=== PATIENT | female | born 1980 | race Native Hawaiian/Other Pacific Islander ===

== ENCOUNTER → 2020-04-13 14:16 | Outpatient (CLI) | payer OTHER, SELFPAY ==
[2020-04-13 15:38] LABS: Add Manual Diff / Slide Review NO; Basophils Absolute Auto 100 /uL (0-100); Basophils Percent Auto 0.4 % (0-2); Eosinophils Absolute Auto 100 /uL (0-450); Eosinophils Percent Auto 0.8 % (2-4); Hematocrit 39.1 % (36-46); Hemoglobin 13.7 g/dL (12.0-16.0); Lymphocytes Absolute Auto 2600 /uL (1100-4500); Lymphocytes Percent Auto 18.4 % (25-40); Mean Corpuscular Hemoglobin 31.7 PG (26-34); Mean Corpuscular Volume 90.6 fL (80-100); Monocytes Absolute Auto 700 /uL (0-900); Neutrophils Absolute Auto 10500 /uL (1500-7000); Neutrophils Percent Auto 75.4 % (50-75); Platelet Count 337 X10^3/uL (150-400); Red Blood Cell Count 4.31 X10^6/uL (4.0-5.2); Red Cell Distribution Width 12.4 % (11.6-14.8); White Blood Cell Count 13.9 X10^3/uL (4.5-11.0)
[2020-04-13 15:45] LABS: Appearance Urine UA CLEAR; Bilirubin Urine UA NEGATIVE (NEGATIVE); Color Urine UA YELLOW; Glucose Urine UA NEGATIVE (Negative); Ketones Urine UA NEGATIVE (NEGATIVE); Leukocyte Esterase Urine UA NEGATIVE (NEGATIVE); Nitrite Urine UA NEGATIVE (Negative); Occult Blood Urine UA NEGATIVE (Negative); Protein Urine UA NEGATIVE (Negative); Specific Gravity Urine UA 1.015 (1.000-1.035); Urobilinogen Urine UA 0.2 E.U./dL (0.2)
[2020-04-13 15:57] LABS: pH Urine UA 7.5 (4.5-8.0)
[2020-04-13 19:09] LABS: Hepatitis B Surface Antigen NEGATIVE s/c (NEGATIVE); Rubella Antibody IgG 17.4 IU/mL (>15)
[2020-04-13 19:23] LABS: HIV 1 & 2 Ab/Ag 4th Gen Combo NEGATIVE (NEGATIVE); Hep C Virus Ab w/Reflex Quant NEGATIVE s/c (NEGATIVE)
[2020-04-14 05:14] LABS: RPR Screen Non Reactive (Non Reactive)
[2020-04-14 10:51] LABS: Varicella IgG Antibody 295 index (Immune >165)
== END ==
PROVIDERS: PCP Specialist; Referring Provider Family Medicine; Visit Provider Family Medicine
DX: Z34.81 Encounter for supervision of other normal pregnancy, first trimester (principal)
CPT/HCPCS: 36415; 80055; 81003; 86787; 86803; 86850; 86900; 86901; 87077; 87086; 87389

== ENCOUNTER → 2020-05-07 13:47 | Outpatient (CLI) | payer OTHER, SELFPAY ==
[2020-05-07 14:03] LABS: RBC Urine None Seen (0-5/HPF)
[2020-05-07 14:40] LABS: Appearance Urine UA CLEAR; Bilirubin Urine UA NEGATIVE (NEGATIVE); Color Urine UA YELLOW; Glucose Urine UA NEGATIVE (Negative); Ketones Urine UA TRACE (NEGATIVE); Leukocyte Esterase Urine UA TRACE (NEGATIVE); Nitrite Urine UA NEGATIVE (Negative); Occult Blood Urine UA NEGATIVE (Negative); Protein Urine UA NEGATIVE (Negative); Urobilinogen Urine UA 0.2 E.U./dL (0.2); pH Urine UA 6.5 (4.5-8.0)
[2020-05-07 14:46] LABS: Amorphous Sediment Urine 1+; Bacteria Urine Occasional (0-1); Culture Indicated Urine Cult Not Indicated; Squamous Epithelial Cell Urine 10-30 /HPF (0-5/HPF); WBC Urine 0-1/HPF (0-5/HPF)
== END ==
PROVIDERS: Referring Provider Family Medicine; Visit Provider Family Medicine
DX: Z34.90 Encounter for supervision of normal pregnancy, unspecified, unspecified trimester (principal)
CPT/HCPCS: 81001; 87086

== ENCOUNTER → 2020-05-11 16:13 | Outpatient (CLI) | payer OTHER, SELFPAY | PROVIDERS: Referring Provider Family Medicine; Visit Provider Family Medicine | DX: O09.299 Supervision of pregnancy with other poor reproductive or obstetric history, unspecified trimester (principal) | CPT/HCPCS: 36415; 81420 ==

== ENCOUNTER → 2020-06-25 15:36 | Outpatient (CLI) | payer OTHER, SELFPAY ==
--- NOTE | 2020-06-25 15:38 | DI.US.S_ITS ---
PROCEDURE: US OB >= 14 WEEKS FETUS INDICATIONS: anatomy scan OUTSIDE/PRIOR DATING DATA: Last menstrual period (LMP): Unknown. LMP-based estimated date of delivery (TOR): Not applicable . First dating scan (date and location): June 25, 2020 . Estimated date of delivery (TOR) from first dating scan: November 21, 2020 . TECHNIQUE: Real-time scanning was performed of the fetus, with image documentation and biometric measurements. Endovaginal scanning: Not performed COMPARISON: None. FINDINGS: General: A single living intrauterine gestation is present. Presentation: Variable. Placenta: Placental position is posterior , without previa. Amniotic fluid index: 14.3 cm, normal range is 5-24 cm. Largest pocket measured 4.9 cm heart rate: 153 beats per minute. Maternal cervical canal: 3.9 cm long. Normal lower limit is 2.5 cm. biometrics: Biparietal diameter: 4.2 cm, correlating with approximately 18 weeks and 4 days Head circumference: 15.3 cm, correlating with approximately 18 weeks and 2 days Abdominal circumference: 13.4 cm, correlating with approximately 18 weeks and 6 days Femur length: 2.9 cm, correlating with approximately 19 weeks and 0 days Estimated gestational age from initial scan: not applicable. Composite gestational age from present scan: 18 weeks and 5 days Estimated weight and percentile: 263 g which correlates with the 95th percentile based off gestational age Measurement variability for biometric dating: +/- 7 days from 14 weeks to 15 weeks 6 days gestation, +/- 10 days from 16 weeks to 21 weeks 6 days gestation, +/- 2 weeks from 22 weeks to 27 weeks 6 days gestation, +/- 3 weeks for 28 weeks gestation or later. weight reference: 4500 g or EFW >90/95% is considered macrosomia or large for gestational age. EFW <10% is small for gestational age. EFW 5% or less is considered intra-uterine growth restriction. Anatomic survey: Neuro: Ventricles are non-dilated at less than 10 mm. Cisterna magna is normal at 3-11 mm. Cerebellum is normal in size and morphology. Nuchal skin fold: Normal at less than 6 mm between 14-21 weeks gestational age. Face: Nose and lips, facial profile are normal. Spine: No evidence for spina bifida. Heart: 4-chambered heart is present, with normal ventricular outflow tracts. Diaphragm: Diaphragm is intact. Stomach: Left-sided stomach is present. Kidneys: No hydronephrosis. Normal is less than 5 mm in 2nd trimester, less than 7 mm in 3rd trimester. Cord: 3-vessel cord has orthotopic insertion. Bladder: Normal in size. Extremities: All 4 extremities identified. IMPRESSION: 1. Single living intrauterine gestation with an estimated sonographic gestational age of approximately 18 weeks and 5 days. This correlates with an estimated date of delivery of November 21, 2020. 2. Estimated weight of approximately 263 g which [address] the fetus within the 95th percentile based off gestational age. 3. Unremarkable routine second-trimester anatomic screening survey. Dictated by: Rosendo Feliciano M.D. on 06/25/2020 at 21:44 Approved by: Rosendo Feliciano M.D. on 06/25/2020 at 21:49
== END ==
PROVIDERS: PCP Family Medicine; Referring Provider Family Medicine; Visit Provider Family Medicine
DX: Z34.92 Encounter for supervision of normal pregnancy, unspecified, second trimester (principal); Z3A.18 18 weeks gestation of pregnancy
CPT/HCPCS: 76811

== ENCOUNTER → 2020-06-29 07:06 | Outpatient (CLI) | payer OTHER, SELFPAY ==
[2020-06-29 09:18] LABS: GTT (PREG) 1 Hour PP 50gm Dose 124 mg/dL (76-139)
== END ==
PROVIDERS: PCP Family Medicine; Referring Provider Family Medicine; Visit Provider Family Medicine
DX: Z34.90 Encounter for supervision of normal pregnancy, unspecified, unspecified trimester (principal)
CPT/HCPCS: 36415; 82950

== ENCOUNTER → 2020-08-20 15:42 | Outpatient (CLI) | payer OTHER, SELFPAY ==
--- NOTE | 2020-08-20 15:44 | DI.US.S_ITS ---
PROCEDURE: US OB LIMITED INDICATIONS: LGA on anatomy scan, f/u growth OUTSIDE/PRIOR DATING DATA: First dating scan (date and location): 06/25/2020 . Estimated date of delivery (TOR) from first dating scan: 11/21/2020 . TECHNIQUE: Real-time scanning was performed of the fetus, with image documentation and biometric measurements. Endovaginal scanning: No COMPARISON: [facility], OB >= 14 WEEKS FETUS, 06/25/2020, 15:59. FINDINGS: General: A single living intrauterine gestation is present. Presentation: Breech. Placenta: Placental position is posterior , without previa. Amniotic fluid index: 14.9 cm, normal range is 5-24 cm. heart rate: 149 beats per minute. Maternal cervical canal: 5.4 cm long. Normal lower limit is 2.5 cm. biometrics: Biparietal diameter: 25 weeks 6 days Head circumference: 26 weeks 2 days Abdominal circumference: 28 weeks 5 Femur length: 26 weeks 4 days Estimated gestational age from initial scan: 26 weeks 5 days Composite gestational age from present scan: 26 weeks 6 days Estimated weight and percentile: 1094 g; 73rd percentile Measurement variability for biometric dating: +/- 7 days from 14 weeks to 15 weeks 6 days gestation, +/- 10 days from 16 weeks to 21 weeks 6 days gestation, +/- 2 weeks from 22 weeks to 27 weeks 6 days gestation, +/- 3 weeks for 28 weeks gestation or later. weight reference: 4500 g or EFW >90/95% is considered macrosomia or large for gestational age. EFW <10% is small for gestational age. EFW 5% or less is considered intra-uterine growth restriction. Other: Not applicable. IMPRESSION: 1. Single living fetus redemonstrated and interval growth is normal. Dictated by: Raymond Menjivar [facility] Interpreted: Syd Ayala MD on 08/20/2020 at 17:07 Approved by: Syd Ayala M.D. on 08/20/2020 at 17:11
== END ==
PROVIDERS: PCP Family Medicine; Referring Provider Family Medicine; Visit Provider Family Medicine
DX: Z36.88 Encounter for antenatal screening for fetal macrosomia (principal); Z3A.26 26 weeks gestation of pregnancy
CPT/HCPCS: 76815

== ENCOUNTER → 2020-09-17 12:08 | Outpatient (CLI) | payer OTHER, SELFPAY ==
[2020-09-17 14:54] LABS: Add Manual Diff / Slide Review NO; Basophils Absolute Auto 0 /uL (0-100); Basophils Percent Auto 0.3 % (0-2); Eosinophils Absolute Auto 0 /uL (0-450); Eosinophils Percent Auto 0.3 % (2-4); Hematocrit 36.9 % (36-46); Hemoglobin 12.5 g/dL (12.0-16.0); Lymphocytes Absolute Auto 1800 /uL (1100-4500); Lymphocytes Percent Auto 15.7 % (25-40); Mean Corpuscular HGB Conc 33.8 % (30-36); Mean Corpuscular Hemoglobin 30.7 PG (26-34); Mean Corpuscular Volume 90.8 fL (80-100); Monocytes Absolute Auto 600 /uL (0-900); Monocytes Percent Auto 5.3 % (3-14); Neutrophils Absolute Auto 9100 /uL (1500-7000); Neutrophils Percent Auto 78.4 % (50-75); Platelet Count 332 X10^3/uL (150-400); Red Blood Cell Count 4.06 X10^6/uL (4.0-5.2); Red Cell Distribution Width 13.3 % (11.6-14.8); White Blood Cell Count 11.6 X10^3/uL (4.5-11.0)
[2020-09-17 15:38] LABS: GTT (PREG) 1 Hour PP 50gm Dose 142 mg/dL (76-139)
== END ==
PROVIDERS: PCP Family Medicine; Referring Provider Family Medicine; Visit Provider Family Medicine
DX: Z34.90 Encounter for supervision of normal pregnancy, unspecified, unspecified trimester (principal)
CPT/HCPCS: 36415; 82950; 85025

== ENCOUNTER → 2020-09-23 08:03 | Outpatient (CLI) | payer OTHER, SELFPAY ==
[2020-09-23 09:36] LABS: Glucose Fasting Gestational 96 mg/dL (76-95)
[2020-09-23 10:49] LABS: Glucose 1 Hour Gest 156 mg/dL (76-180)
[2020-09-23 11:13] LABS: Glucose 2 Hour Gest 155 mg/dL (76-155)
[2020-09-23 11:22] LABS: Glucose Tol Interp,Gestational INTERPRETATION
[2020-09-23 12:18] LABS: Glucose 3 Hour Gest 139 mg/dL (76-140)
== END ==
PROVIDERS: PCP Family Medicine; Referring Provider Family Medicine; Visit Provider Family Medicine
DX: Z34.90 Encounter for supervision of normal pregnancy, unspecified, unspecified trimester (principal); R73.09 Other abnormal glucose
CPT/HCPCS: 36415; 82951; 82952

== ENCOUNTER → 2020-10-07 15:44 | Outpatient (CLI) | payer OTHER, SELFPAY ==
--- NOTE | 2020-10-07 15:47 | DI.US.S_ITS ---
PROCEDURE: US OB LIMITED INDICATIONS: GROWTH OUTSIDE/PRIOR DATING DATA: Last menstrual period (LMP): Not available. LMP-based estimated date of delivery (TOR): Not available . First dating scan (date and location): 06/25/20 . Estimated date of delivery (TOR) from first dating scan: 11/21/20 . TECHNIQUE: Real-time scanning was performed of the fetus, with image documentation and biometric measurements. Endovaginal scanning: Not needed COMPARISON: [facility], OB LIMITED, 08/20/2020, 16:12. FINDINGS: General: A single living intrauterine gestation is present. Presentation: Vertex. Placenta: Placental position is posterior fundal , without previa. Amniotic fluid index: 8.5 cm, normal range is 5-24 cm. heart rate: 143 beats per minute. Maternal cervical canal: 3.1 cm long. Normal lower limit is 2.5 cm. biometrics: Biparietal diameter: 8.4 cm, 33 weeks 4 days Head circumference: 30.3 cm, 33 weeks 4 days Abdominal circumference: 30.5 cm, 34 weeks 3 days Femur length: 6.4 cm, 33 weeks 0 days Estimated gestational age from initial scan: not applicable. Composite gestational age from present scan: 33 weeks 5 days Estimated weight and percentile: 2302g, 52% Measurement variability for biometric dating: +/- 7 days from 14 weeks to 15 weeks 6 days gestation, +/- 10 days from 16 weeks to 21 weeks 6 days gestation, +/- 2 weeks from 22 weeks to 27 weeks 6 days gestation, +/- 3 weeks for 28 weeks gestation or later. weight reference: 4500 g or EFW >90/95% is considered macrosomia or large for gestational age. EFW <10% is small for gestational age. EFW 5% or less is considered intra-uterine growth restriction. Other: Not applicable. IMPRESSION: Appropriate growth. Dictated by: Jadiel Victoria M.D. on 10/07/2020 at 17:38 Approved by: Jadiel Victoria M.D. on 10/08/2020 at 14:34
== END ==
PROVIDERS: PCP Family Medicine; Referring Provider Family Medicine; Visit Provider Family Medicine
DX: Z36.89 Encounter for other specified antenatal screening (principal); Z3A.33 33 weeks gestation of pregnancy
CPT/HCPCS: 76815

== ENCOUNTER → 2020-10-18 13:58 | Outpatient (CLI) | payer OTHER, SELFPAY ==
--- NOTE | 2020-10-18 14:41 | DIET.PN ---
INITIAL GESTATIONAL DIABETES ASSESSMENT ASSESS:? Ms. Geller is a 40 yof referred for newly diagnosed Gestational diabetes. Pt is G4, P2. She has hx of pre-eclampsia and was started on 81mg baby aspirin. She has been monitoring her fasting and 2 hr post prandial glucose. She has had several fastings >95 with a few post meals >135. She admits to eating a lot of rice, burgers, and wakes up in the middle of the night and drinks juice. ? TOR:?11/23/2020 ? WKS GESTATION:?? 35wks ?LABS: FB 1hr: 156 2hr: 155 3hr: 139 ? MEDS: na ? DIET:? B: sausage muffin, 16oz almond milk coffee or German yogurt L: chicken wrap; burger w/ fries; taco salad D: meat, veg, rice, sometimes ice cream Evening sn: juice ? HT:? 64in ? PRE-PREG WT:? 147lb ? PRE-PREG BMI:??? 25.2 ? CURRENT WT: 184lb ? TOTAL WT GAIN:? 37lb EXERCISE: 1-2 miles walking per day NUTRITION DX 1. Altered nutrition related lab values r/t gestational diabetes as evidenced by recent labs (OGGT). INTERVENTION 1. Discussed pathophysiology of gestational diabetes and impact of hormone and nutrition/diet on blood sugar control.? Discussed fed versus non-fed state.? 2. Recommended checking fasting, pre-meal and 1hr post prandial (3x/day).? Discussed goals for glycemic control (<95 FBG, <140 1-hr PP, <120 2-hr PP).? 3. Discussed the effect of carbohydrates/protein/fat on blood sugar control.? Stressed importance of consistent carbohydrate intake at each meal and provided instructions for recommended servings/portions of carbohydrates/protein per meal.? Provided pt with educational material. 4. Introduced carbohydrate counting and measuring carbohydrate content via servings sizes and reading nutrition labels.? Provided handouts.? Pt will need further review 5. Discussed importance of meal timing and not going >3 hours between meals.? Provided sample meal schedule for pt.? Pt agreeable.?? 6. Discussed importance a pre- vitamin and including food sources of calcium, vitamin D, iron and folic acid for baby and mother?s nutrition support. 7. Discussed caffeine intake. Recommend no more than 200 mg/day (1 cup coffee). 8. Discussed rule of 15 for hypoglycemia. 9. Recommend patient purchase Urine Ketone strips and instructed on use and when to contact provider. 10. Recommended patient continue exercise as appropriate per PCP approval. 11. Patient may need medication management, will follow-up with plan of care at next visit after reviewing glucose results.? MONITOR/EVAL: Follow up scheduled X 1 week. Good compliance expected. Review: carb sources, carb counting, portion size, meal timing, BG log, weight.
== END ==
PROVIDERS: PCP Family Medicine; Referring Provider Family Medicine; Visit Provider Family Medicine
DX: O24.419 Gestational diabetes mellitus in pregnancy, unspecified control (principal); Z3A.35 35 weeks gestation of pregnancy; Z71.3 Dietary counseling and surveillance
CPT/HCPCS: G0108

== ENCOUNTER → 2020-10-19 15:17 | Outpatient (CLI) | payer OTHER, SELFPAY ==
[2020-10-20 13:33] LABS: Strep Grp B PCR NEG for Grp B Strep
== END ==
PROVIDERS: PCP Family Medicine; Visit Provider Family Medicine
DX: Z34.90 Encounter for supervision of normal pregnancy, unspecified, unspecified trimester (principal); Z3A.25 25 weeks gestation of pregnancy
CPT/HCPCS: 87653

== ENCOUNTER 2020-10-27 15:35 | Outpatient (CLI) | payer OTHER, SELFPAY ==
[2020-10-27 16:09] LABS: RBC Urine None Seen (0-5/HPF)
--- NOTE | 2020-10-27 16:14 | PM.OBTRLD ---
Visit Information Visit Information Date of evaluation: 10/27/20 Primary OB Provider: Leilani Shine Reason for Evaluation: Yes other Comments/Additional reasons for admission: 40yo at 36w1d here for evaluation due to elevated BP in clinic. No headaches, vision changes, RUQ pain, increased edema. She is overall feeling well. No contractions, LOF, vaginal bleeding. Feeling baby move regularly. [facility] Medical History (Updated 10/27/20 @ 17:12 by Leilani Shine MD) AMA (advanced maternal age) multigravida 35+ Anxiety (~2016) Depression (~2016) Left wrist fracture Migraine Preeclampsia (~01/09/05) Seasonal allergies (spontaneous vaginal delivery) (~10/29/98) Surgical History (Updated 04/08/20 @ 15:11 by Johanny Nevarez, RN) H/O dilation and curettage (~2001) Family History (Updated 04/08/20 @ 15:27 by Johanny Nevarez, DENICE) Mother Hypertension Father Hypertension Cataracts, bilateral Grandfather Old age Grandmother Old age Grandfather No problems noted. Grandmother Old age Brother No known health problems Social History marital status: unmarried,living together details: Son is in College : [place] number of children: 2 household members: spouse and children lives independently: Yes pets and animals: Yes education level: high school occupational status: employed current occupational exposures/hazards: Yes Previous occupational history: works at the [email or web address] special [employer] needs: No Smoking Status: Current some day smoker (vaping) Tobacco: How many years used: 20 Smokeless tobacco user: dissolvable tobacco (Vaping - aware and using less) second hand exposure: No alcohol intake: former (pre- : wine at night (stopped with diagnosis)) substance use type: does not use Objective Labs Result Diagrams: 10/27/20 16:05 10/27/20 16:05 Evaluation Evaluation Baseline heart rate: 120 Variability: Moderate (11-25) monitor accelerations: Present monitor decelerations: Absent Category of Tracing: Reactive Diagnosis, Plan/Disposition Final Diagnosis (1) Pre-eclampsia: Status: Acute (2) 36 weeks gestation of : Status: Acute Plan/Disposition Plan: Pt with persistently elevated blood pressure here, more than 2 hours after check in the office, but not to severe range. Asymptomatic. Negative HELLP labs, however Pr/Cr elevated therefore meeting criteria for pre-eclampsia without severe features. Normal BPP today. Pt will return for NST on 11/01. Appt on that day as well. Recommend checking BPs at home BID until then. If > 160/110, to come to L&D for evaluation. If persistently > 150/100, will let us know. Discussed signs/symptoms in detail including swelling, RUQ pain, vision changes, headache. Pt will be evaluated if these occur. Plan for IOL at 37wks for pre-eclampsia. OB Disposition: home
[2020-10-27 16:15] LABS: Add Manual Diff / Slide Review NO; Basophils Absolute Auto 100 /uL (0-100); Basophils Percent Auto 0.6 % (0-2); Eosinophils Absolute Auto 0 /uL (0-450); Eosinophils Percent Auto 0.3 % (2-4); Hematocrit 36.1 % (36-46); Hemoglobin 12.7 g/dL (12.0-16.0); Lymphocytes Absolute Auto 1800 /uL (1100-4500); Lymphocytes Percent Auto 17.6 % (25-40); Mean Corpuscular HGB Conc 35.3 % (30-36); Mean Corpuscular Hemoglobin 31.7 PG (26-34); Mean Corpuscular Volume 89.7 fL (80-100); Monocytes Absolute Auto 600 /uL (0-900); Monocytes Percent Auto 5.6 % (3-14); Neutrophils Absolute Auto 7800 /uL (1500-7000); Neutrophils Percent Auto 75.9 % (50-75); Platelet Count 259 X10^3/uL (150-400); Red Blood Cell Count 4.02 X10^6/uL (4.0-5.2); Red Cell Distribution Width 13.9 % (11.6-14.8); White Blood Cell Count 10.3 X10^3/uL (4.5-11.0)
--- NOTE | 2020-10-27 16:17 | DI.US.S_ITS ---
PROCEDURE: US OB BIOPHYSICAL PROFILE INDICATIONS: gestational HTN OUTSIDE/PRIOR DATING DATA: Last menstrual period (LMP): Not known. LMP-based estimated date of delivery (TOR): Not applicable. First dating scan (date and location): June 25, 2020. Estimated date of delivery (TOR) from first dating scan: November 21, 2020. TECHNIQUE: Real-time scanning was performed of the fetus for biophysical profile, with image documentation. Color and pulse Doppler interrogation was also performed of the umbilical artery near its insertion into the placenta. Endovaginal scanning: Performed COMPARISON: [facility], OB LIMITED, 10/07/2020, 15:57. [facility], OB LIMITED, 08/20/2020, 16:12. [facility], OB >= 14 WEEKS FETUS, 06/25/2020, 15:59. FINDINGS: General: A single living intrauterine gestation is present. Presentation: Cephalic Placenta: Placental position is posterior, without previa. Amniotic fluid index: 9.6 cm, normal range is 5-24 cm. heart rate: 144 beats per minute. Maternal cervical canal: Not evaluated. Biophysical profile: Tone: 2 points. Movement: 2 points. Respiration: 2 points. Largest pocket of fluid: To points. Umbilical artery Doppler: Not evaluated. IMPRESSION: 1. Single living intrauterine gestation. 2. Biophysical profile score 8/8. Dictated by: Beverley Hilario MD, PhD on 10/27/2020 at 17:50 Approved by: Beverley Hilario MD, PhD on 10/27/2020 at 17:54
[2020-10-27 16:27] LABS: Alanine Aminotransferase 14 IU/L (<35); Albumin 3.4 g/dL (3.5-5.0); Albumin Globulin Ratio 1.1 (1.0-2.8); Alkaline Phosphatase 86 U/L (38-126); Aspartate Aminotransferase 23 IU/L (14-36); BUN Creatinine Ratio 11.5 (6-22); Bilirubin Total 0.1 mg/dL (0.2-1.3); Blood Urea Nitrogen 6 mg/dL (7-17); Calcium 9.2 mg/dL (8.4-10.2); Carbon Dioxide 20 mmol/L (22-32); Chloride 107 mmol/L (98-107); Estimated Glomerular Filt Rate > 60.0 mL/min (>60); Glucose 117 mg/dL (70-100); HEMOLYSIS < 15 (0-50); Potassium 3.7 mmol/L (3.4-5.1); Sodium 135 mmol/L (137-145); Total Protein 6.4 g/dL (6.3-8.2)
[2020-10-27 16:44] LABS: Appearance Urine UA CLEAR; Bilirubin Urine UA NEGATIVE (NEGATIVE); Color Urine UA YELLOW; Glucose Urine UA NEGATIVE (Negative); Ketones Urine UA NEGATIVE (NEGATIVE); Leukocyte Esterase Urine UA TRACE (NEGATIVE); Nitrite Urine UA NEGATIVE (Negative); Occult Blood Urine UA TRACE-LYSED (Negative); Protein Urine UA NEGATIVE (Negative); Urobilinogen Urine UA 0.2 E.U./dL (0.2)
[2020-10-27 16:55] LABS: Bacteria Urine Occasional (0-1); Culture Indicated Urine Specimen Cultured; Squamous Epithelial Cell Urine 1-5 /HPF (0-5/HPF); WBC Urine 1-5/HPF (0-5/HPF)
[2020-10-27 17:00] LABS: Creatinine Urine Random 29.1 mg/dL; Protein (Total) Urine Random 14 mg/dL (0-12); Protein Creatinine Ratio Urine 0.48 GRAM/24H
== END 2020-10-27 17:18 | disposition home or self-care (01) ==
LOC: LABOR 16:15 → OB 10-28 06:49
PROVIDERS: PCP Family Medicine; Referring Provider Family Medicine; Visit Provider Family Medicine
DX: O14.03 Mild to moderate pre-eclampsia, third trimester (principal); O24.410 Gestational diabetes mellitus in pregnancy, diet controlled; O09.523 Supervision of elderly multigravida, third trimester; Z3A.36 36 weeks gestation of pregnancy
CPT/HCPCS: 36415; 59025; 76819; 80053; 81001; 82570; 84156; 85025; 87077; 87086; G0378; G0379

== ENCOUNTER 2020-11-01 14:53 | Outpatient (CLI) | payer OTHER, SELFPAY ==
--- NOTE | 2020-11-01 15:31 | PM.OBTRLD ---
Visit Information Visit Information Date of evaluation: 11/01/20 Primary OB Provider: Leilani Shine Reason for Evaluation: Yes non-stress test non-stress test reason: hypertension/pre-eclampsia Comments/Additional reasons for admission: 40yo at 36w6d here for NST for pre-eclampsia without severe features. [facility] Medical History (Updated 11/01/20 @ 14:48 by Leilani Sihne MD) AMA (advanced maternal age) multigravida 35+ Anxiety (~2016) Depression (~2016) Left wrist fracture Migraine Preeclampsia (~01/09/05) Seasonal allergies (spontaneous vaginal delivery) (~10/29/98) Surgical History (Updated 04/08/20 @ 15:11 by Johanny Nevarez, RN) H/O dilation and curettage (~2001) Family History (Updated 04/08/20 @ 15:27 by Johanny Nevarez, DENICE) Mother Hypertension Father Hypertension Cataracts, bilateral Grandfather Old age Grandmother Old age Grandfather No problems noted. Grandmother Old age Brother No known health problems Social History marital status: unmarried,living together details: Son is in College : [place] number of children: 2 household members: spouse and children lives independently: Yes pets and animals: Yes education level: high school occupational status: employed current occupational exposures/hazards: Yes Previous occupational history: works at the [employer] needs: No Smoking Status: Current some day smoker (vaping) Tobacco: How many years used: 20 Smokeless tobacco user: dissolvable tobacco (Vaping - aware and using less) second hand exposure: No alcohol intake: former (pre- : wine at night (stopped with diagnosis)) substance use type: does not use Evaluation Evaluation Baseline heart rate: 120 Variability: Moderate (11-25) monitor accelerations: Present monitor decelerations: Absent Category of Tracing: Reactive Diagnosis, Plan/Disposition Final Diagnosis (1) Pre-eclampsia: Status: Acute (2) 36 weeks gestation of : Status: Acute Plan/Disposition Plan: 40yo at 36w6d here for NST for pre-eclampsia without severe features. NST reactive. Single BP elevated to severe range, no repeat back to normal after off the phone with her family. Plan for IOL tomorrow night. OB Disposition: home
== END 2020-11-01 15:36 | disposition home or self-care (01) ==
LOC: LABOR 14:56 → OB 11-02 08:42
PROVIDERS: PCP Family Medicine; Referring Provider Family Medicine; Visit Provider Family Medicine
DX: O14.93 Unspecified pre-eclampsia, third trimester (principal); Z3A.36 36 weeks gestation of pregnancy
CPT/HCPCS: 59025; G0378; G0379

== ENCOUNTER 2020-11-02 19:48 | Inpatient (IN) | payer OTHER, SELFPAY ==
[2020-11-02 20:44] LABS: Add Manual Diff / Slide Review NO; Basophils Absolute Auto 0 /uL (0-100); Basophils Percent Auto 0.4 % (0-2); Eosinophils Absolute Auto 0 /uL (0-450); Eosinophils Percent Auto 0.2 % (2-4); Hematocrit 36.7 % (36-46); Hemoglobin 12.9 g/dL (12.0-16.0); Lymphocytes Absolute Auto 2100 /uL (1100-4500); Lymphocytes Percent Auto 20.2 % (25-40); Mean Corpuscular HGB Conc 35.2 % (30-36); Mean Corpuscular Hemoglobin 31.9 PG (26-34); Mean Corpuscular Volume 90.5 fL (80-100); Monocytes Absolute Auto 500 /uL (0-900); Neutrophils Absolute Auto 7800 /uL (1500-7000); Neutrophils Percent Auto 74.2 % (50-75); Platelet Count 258 X10^3/uL (150-400); Red Blood Cell Count 4.05 X10^6/uL (4.0-5.2); Red Cell Distribution Width 14.1 % (11.6-14.8); White Blood Cell Count 10.5 X10^3/uL (4.5-11.0)
[2020-11-02] MEDS: miSOPROStoL 25 MCG TABLET VAG (20:46)
[2020-11-02 23:31] VITALS: BP 144/92
[2020-11-03] MEDS: ZOLPIDEM 5 MG TABLET PO (00:30)
[2020-11-03] MEDS: miSOPROStoL 25 MCG TABLET VAG ×2 (00:54→04:50)
--- NOTE | 2020-11-03 08:24 | PM.OBHP.1 ---
OB HPI Date/Time Date of admission: 11/02/20 Date Patient Seen: 11/03/20 Time Patient Seen: 08:00 History of Present Condition Chief complaint: observation of labor : 4 Para: 2 Estimated Date of Delivery: 11/23/20 Estimated Gestational Age (weeks): 37w1d Narrative: Gurdeep Geller is a 40 year old at 37w1d here for IOL for pre-eclampsia. Pt denies any headache, vision changes, RUQ pain, worsening LE edema. She has been checking her BPs at home, consistently < 160/110. The pt denies any vaginal bleeding, LOF, contractions before presentation. She is feeling her baby move regularly. The pts has been complicated by GDMA1. Initially with some difficulty controlling fasting sugars, but this has improved significantly. The pt has a hx of pre-eclampsia with her last , and has been on Aspirin since 12 weeks gestation. Pre-eclampsia was diagnosed at 36w1d due to elevated BPs and protein/creatinine ratio, without any severe features. The pts fundus has measured larger than dates for most of her . Baby was 95th percentile at anatomy scan, however subsequent ultrasounds have showed growth at the 73rd and 52nd percentiles. Indications Indication for induction OB: other (pre-eclampsia) History of Present care: good care, initiated at week # (8) and pounds weight gain (40) Dating criteria: LMP confirmed by 1st trimester US Ultrasounds: normal 1st trimester US and normal mid trimester US Obstetrical complications: gestational diabetes (A1) and preeclampsia (diagnosed at 36w1d) Medical complications: none Preadmission Labs Blood type: A (+) positive -: Antibody screen: negative, GBS status: negative, HBsAG: negative, HIV: negative and RPR/VDLR: negative -: Rubella: immune and Varicella: immune HCT: 36.1 HCAB: negative Cell-free DNA: Negative Urine: Negative 1 hr GTT: 142 Prior (ies) History: 10/1998 - at 42wks after post-dates IOL, 7lb9oz male 08/2001 - spontaneous requiring D&C 03/2005 - at 40wks, 9px10nl female, post- pre-eclampsia requiring MgSO4 and antihypertensives continued for around 2 weeks Evaluation Evaluation Baseline heart rate: 120 Variability: Moderate (11-25) monitor accelerations: Present monitor decelerations: Absent Contraction Frequency (minutes): 3 Uterine Contraction Intensity: Strong/Firm Status: Category l Cervical dilation (cm): 2 Cervical effacement (%): 50 station: -2 Laboratory results: Laboratory Tests 11/02/20 11/02/20 11/02/20 20:10 20:10 20:10 WBC 10.5 RBC 4.05 Hgb 12.9 Hct 36.7 MCV 90.5 MCH 31.9 MCHC 35.2 RDW 14.1 Plt Count 258 Neut % (Auto) 74.2 Lymph % (Auto) 20.2 L [place] % (Auto) 5.0 Eos % (Auto) 0.2 L Baso % (Auto) 0.4 Neut # (Auto) 7800 H Lymph # (Auto) 2100 [place] # (Auto) 500 Eos # (Auto) 0 Baso # (Auto) 0 SARS-CoV-2 (PCR) Positive H Blood Type A Positive Antibody Screen Negative [facility] Medical History (Updated 11/01/20 @ 14:48 by Leilani Shine MD) AMA (advanced maternal age) multigravida 35+ Anxiety (~2016) Depression (~2016) Left wrist fracture Migraine Preeclampsia (~01/09/05) Seasonal allergies (spontaneous vaginal delivery) (~10/29/98) Surgical History (Updated 04/08/20 @ 15:11 by Johanny Nevarez RN) H/O dilation and curettage (~2001) Family History (Updated 04/08/20 @ 15:27 by Johanny Nevarez RN) Mother Hypertension Father Hypertension Cataracts, bilateral Grandfather Old age Grandmother Old age Grandfather No problems noted. Grandmother Old age Brother No known health problems Social History marital status: unmarried,living together details: Son is in College : [place] number of children: 2 household members: spouse and children lives independently: Yes pets and animals: Yes education level: high school occupational status: employed current occupational exposures/hazards: Yes Previous occupational history: works at [employer] needs: No Smoking Status: Current some day smoker Tobacco: How many years used: 20 Smokeless tobacco user: dissolvable tobacco (Vaping - aware and using less) second hand exposure: No alcohol intake: former (pre- : wine at night (stopped with diagnosis)) substance use type: does not use Meds Home Medications and Allergies Home Medications Medication Instructions Recorded Confirmed Type loratadine 10 mg tablet 10 mg PO DAILY 04/08/20 04/08/20 History prenat.vits,la,wsz-qufj-hnias 1 tab PO DAILY 04/08/20 04/08/20 History aspirin 81 mg tablet,delayed 81 mg PO DAILY #90 tab 05/11/20 05/11/20 Rx release blood sugar diagnostic #100 ea 09/24/20 Rx blood-glucose meter #1 ea 09/24/20 Rx lancets 33 gauge #100 ea 09/24/20 Rx Allergies Allergy/AdvReac Type Severity Reaction Status Date / Time No Known Allergies Allergy Uncoded 04/08/20 14:54 Exam Const General: cooperative, healthy appearing and comfortable Orientation: alert, awake and oriented x3 Resp Effort & Inspection: normal respiratory effort Auscultation: clear to auscultation bilaterally Cardio Rate: regular rate Rhythm: regular rhythm Heart Sounds: S1 normal, S2 normal and no murmurs GI Inspection: non-distended Palpation: soft and No tender Other: gravid Presentation: vertex Estimated Weight (lbs): 8 Extrem General: no clubbing, cyanosis or edema Objective Labs Result Diagrams: 11/02/20 20:10 Labs: Laboratory Results - last 24 hr 11/02/20 11/02/20 11/02/20 20:10 20:10 20:10 WBC 10.5 RBC 4.05 Hgb 12.9 Hct 36.7 MCV 90.5 MCH 31.9 MCHC 35.2 RDW 14.1 Plt Count 258 Neut % (Auto) 74.2 Lymph % (Auto) 20.2 L [place] % (Auto) 5.0 Eos % (Auto) 0.2 L Baso % (Auto) 0.4 Neut # (Auto) 7800 H Lymph # (Auto) 2100 [place] # (Auto) 500 Eos # (Auto) 0 Baso # (Auto) 0 SARS-CoV-2 (PCR) Positive H Blood Type A Positive Antibody Screen Negative Assessment and Plan Assessment and Plan Assessment and Plan narrative: 40yo at 37w1d here for IOL for pre-eclampsia without severe features. BPs thus far have remained < 160/110, and pt is asymptomatic. No need for MgSO4 at this time. Pt is AMA with negative cfDNA. Pt also with GDMA1 with good control. Received 3 doses of cytotec overnight, now appears to be transitioning into active labor. Rh positive, GBS negative. Pt did test positive for COVID at admission. - Expectant management, anticipate - Monitor BPs closely - No need for MgSO4 at this time - GBS negative, no prophylaxis - FHT reassuring - Epidural for pain control when desired - Pt with regular painful contractions. Initiate pitocin if contractions spacing or without cervical change in a couple hours.
[2020-11-03 11:25] LABS: COVID19 - ADMIT (NP swab/PCR) Negative (Negative)
[2020-11-03] MEDS: LACTATED RINGERS 1,000 ML 100 ML IV ×3 (13:09→22:31)
[2020-11-03] MEDS: OXYTOCIN PREMIX 30 UNIT/500 ML PLAST..BAG IV (13:10)
--- NOTE | 2020-11-03 17:03 | PM.OBPNLAB ---
Date/Time Date Patient Seen: 11/03/20 Time Patient Seen: 17:03 Pain Control Pain control: tolerating well Pelvic Exam Dilation (cm): 4 Effacement (%): 70 station: -2 Amniotic membrane status: Ruptured Comments: After informed consent, AROM performed with production of clear fluid. Contractions Monitor mode: External Pitocin rate (mU/min): 5 Contraction frequency (min): 3 Contraction pattern: Regular Contraction intensity: Strong/Firm Status status: Category l Heart Rate Baseline: 120 Monitor Accelerations: Present Monitor Decelerations: Absent Monitor Variability: Moderate Assessment and Plan Comments: 40yo at 37w1d here for IOL for pre-eclampsia without severe features. BPs thus far have remained < 160/110, and pt is asymptomatic. No need for MgSO4 at this time. Pt is AMA with negative cfDNA. Pt also with GDMA1 with good control. Received 3 doses of cytotec overnight, now on pitocin. AROM performed with production of clear fluid. Rh positive, GBS negative. Pt did test positive for COVID at admission, repeat testing negative. - Expectant management, anticipate - Monitor BPs closely - No need for MgSO4 at this time - GBS negative, no prophylaxis - FHT reassuring - Epidural for pain control when desired - Continue pitocin, titrate as tolerated
[2020-11-03 17:34] LABS: Alanine Aminotransferase 13 IU/L (<35); Albumin 3.5 g/dL (3.5-5.0); Albumin Globulin Ratio 1.1 (1.0-2.8); Alkaline Phosphatase 101 U/L (38-126); Aspartate Aminotransferase 25 IU/L (14-36); BUN Creatinine Ratio 10.2 (6-22); Bilirubin Total 0.3 mg/dL (0.2-1.3); Blood Urea Nitrogen 6 mg/dL (7-17); Calcium 9.4 mg/dL (8.4-10.2); Carbon Dioxide 19 mmol/L (22-32); Chloride 107 mmol/L (98-107); Estimated Glomerular Filt Rate > 60.0 mL/min (>60); Globulin 3.1 g/dL (1.7-4.1); Glucose 80 mg/dL (70-100); HEMOLYSIS < 15 (0-50); Potassium 3.8 mmol/L (3.4-5.1); Sodium 133 mmol/L (137-145); Total Protein 6.6 g/dL (6.3-8.2)
[2020-11-03 18:09] LABS: COVID19 - ADMIT (NP swab/PCR) Negative (Negative)
[2020-11-03] MEDS: miSOPROStoL 200 MCG TABLET 1000 MCG PR (22:58)
[2020-11-03] MEDS: CARBOPROST 250 MCG/ML AMPUL IM (23:00)
[2020-11-03] MEDS: OXYTOCIN 10 UNIT/ML VIAL IM (23:07)
[2020-11-03] MEDS: TRANEXAMIC ACID 1,000 MG in SODIUM CHLORIDE 0.9% 100 ML 400 ML IV (23:19)
[2020-11-03] MEDS: OXYTOCIN PREMIX 30 UNIT/500 ML PLAST..BAG 200 UNIT IV (23:31)
--- NOTE | 2020-11-03 23:38 | P.PCNOB_ITS ---
Labor & Delivery Delivery date: 11/03/20 Estimated blood loss (mL): 1,050 Narrative: PROCEDURE: at 37w1d presented for IOL for pre-eclampsia and was admitted to Labor and Delivery. She received cytotec and then pitocin for induction. She received an epidural for pain control. AROM was performed with production of clear fluid. The patient progressed through the 1st stage over 5 hours. The patient progressed through the 2nd stage over 1 hour. While in the second stage, the pt had recurrent early, variable, and late decels that initially responded to IV fluid bolus and position changes. There was good variability throughout, however the baseline gradually fell to the 100s, with frequent decelerations to the 70s. Due to nonreassuring heart tones, the decision was made to proceed with vacuum-assisted vaginal delivery. Patient was evaluated and noted to have adequate pain control. Patient counseled on risks/benefits/alternatives of vacuum assisted delivery. Risks were discussed and they included but were not limited to a need for an episiotomy, pressure m arks on the baby, lacerations to the baby's scalp/face, serious damage including skull fracture, the need to proceed with an abdominal procedure, , paralysis of the baby's arms and/or legs, neurological impairment of the baby. Alternatives would include CS or further observation depending on status. Questions were answered and the patient verbalized an understanding and decided to proceed. Cervix completely dilated and maternal bladder emptied. Maternal pelvis was noted to be adequate. Vacuum cup of the [employer] applied to the flexion point without difficulty and during contractions, pressure applied between 400-600 mmHg as indicated in the green zone of the pressure gauge. Infant delivered after 2 pulls over one contraction with 0 pop-offs over an intact perineum. Total duration of application of the vacuum was less than 3 minutes. The anterior shoulder and remainder of the was delivered without difficulty. The infant cried spontaneously immediately after delivery. The cord was clamped and cut after it stopped pulsating. was examined and no evidence of injury noted. The infant delivered at 22:45 with APGARs 9/9. The perineum and vagina were inspected with no lacerations. After the third stage of delivery, the pt was noted to have brisk vaginal bleeding. Aggressive fundal massage slowed in minimally, despite having a very firm fundus. Bimanual massage produced multiple moderately sized clots, and revealed a boggy lower uterine segment. Cytotec and Hemabate were administered. The placenta was examined and noted to be intact. The pt continued to have bleeding. Bimanual massage was completed two additional times, with the lower uterine segment slowly beckie. Transexamic acid was given. The pts bleeding gradually stopped. Methergine was never given due to the pts hypertension. PREPROCEDURE DIAGNOSIS: Intrauterine at 37w1 GBS negative RH positive AMA GDMA1 Pre-eclampsia without severe features POSTPROCEDURE DIAGNOSIS: Intrauterine at 37w1d, delivered Same as preprocedure hemorrhage due to uterine atony PROCEDURE: Vacuum-assisted vaginal delivery INDUCTION: Yes, cytotec LABOR AUGMENTATION: Pitocin, AROM ROM APPEARANCE: Clear BABY A DELIVERY TIME: 22:45 BABY A OUTCOME: Viable BABY A SEX: Female BABY A WEIGHT: 6lb11.6oz BABY A PRESENTATION: Vertex BABY A POSITION: OA BABY A NUCHAL CORD: None BABY A # CORD VESSELS: 3 BABY A CORD GASES OBTAINED: No PLACENTA DELIVERY TIME: 22:51 PLACENTAL DELIVERY TYPE: Spontaneous PLACENTA APPEARANCE: Intact 2 pulls with vacuum, lower uterine atony - bimanual massage, [place] Baby 1: gender: Female score (1 min): 9 score (5 min): 9 Plan for aftercare: Routine care and Other (2g Ancef due to prolonged bimanual massage)
[2020-11-03 23:39] LABS: Add Manual Diff / Slide Review NO; Basophils Absolute Auto 100 /uL (0-100); Basophils Percent Auto 0.4 % (0-2); Eosinophils Absolute Auto 0 /uL (0-450); Eosinophils Percent Auto 0.1 % (2-4); Hematocrit 36.9 % (36-46); Hemoglobin 12.6 g/dL (12.0-16.0); Lymphocytes Absolute Auto 1600 /uL (1100-4500); Lymphocytes Percent Auto 9.2 % (25-40); Mean Corpuscular Hemoglobin 30.8 PG (26-34); Mean Corpuscular Volume 90.5 fL (80-100); Monocytes Absolute Auto 600 /uL (0-900); Monocytes Percent Auto 3.3 % (3-14); Neutrophils Absolute Auto 15500 /uL (1500-7000); Platelet Count 219 X10^3/uL (150-400); Red Blood Cell Count 4.08 X10^6/uL (4.0-5.2); White Blood Cell Count 17.8 X10^3/uL (4.5-11.0)
[2020-11-03 23:42] LABS: Prothrombin Time 10.9 SECONDS (10.1-12.7)
[2020-11-03 23:44] LABS: PTT Partial Thromboplastin Tim 30 SECONDS (26.4-36.2)
[2020-11-03 23:46] LABS: Alanine Aminotransferase 15 IU/L (<35); Albumin 3.1 g/dL (3.5-5.0); Albumin Globulin Ratio 1.1 (1.0-2.8); Alkaline Phosphatase 89 U/L (38-126); Aspartate Aminotransferase 26 IU/L (14-36); BUN Creatinine Ratio 9.8 (6-22); Bilirubin Total 0.3 mg/dL (0.2-1.3); Blood Urea Nitrogen 6 mg/dL (7-17); Calcium 8.9 mg/dL (8.4-10.2); Carbon Dioxide 21 mmol/L (22-32); Chloride 107 mmol/L (98-107); Estimated Glomerular Filt Rate > 60.0 mL/min (>60); Globulin 2.7 g/dL (1.7-4.1); Glucose 85 mg/dL (70-100); HEMOLYSIS < 15 (0-50); Potassium 3.9 mmol/L (3.4-5.1); Sodium 133 mmol/L (137-145); Total Protein 5.8 g/dL (6.3-8.2)
[2020-11-04] MEDS: CEFAZOLIN 2 GM/100 ML FROZ.PIGGY IV (03:02)
[2020-11-04 05:40] LABS: Add Manual Diff / Slide Review NO; Basophils Absolute Auto 100 /uL (0-100); Basophils Percent Auto 0.3 % (0-2); Eosinophils Absolute Auto 0 /uL (0-450); Eosinophils Percent Auto 0.1 % (2-4); Hematocrit 31.9 % (36-46); Lymphocytes Absolute Auto 1600 /uL (1100-4500); Lymphocytes Percent Auto 9.6 % (25-40); Mean Corpuscular HGB Conc 34.4 % (30-36); Mean Corpuscular Volume 90.3 fL (80-100); Monocytes Absolute Auto 700 /uL (0-900); Monocytes Percent Auto 4.1 % (3-14); Neutrophils Absolute Auto 14100 /uL (1500-7000); Neutrophils Percent Auto 85.9 % (50-75); Platelet Count 202 X10^3/uL (150-400); Red Blood Cell Count 3.53 X10^6/uL (4.0-5.2); Red Cell Distribution Width 14.1 % (11.6-14.8); White Blood Cell Count 16.4 X10^3/uL (4.5-11.0)
[2020-11-04] MEDS: FERROUS SULFATE 325 MG TABLET PO (08:55)
[2020-11-04] MEDS: PRENATAL VIT,CALC/IRON/FOLIC 1 TABLET 1 TAB PO (08:55)
[2020-11-04] MEDS: DOCUSATE 100 MG CAPSULE PO (08:55)
[2020-11-04] MEDS: LORATADINE 10 MG TABLET PO (08:55)
[2020-11-04] MEDS: LANOLIN OINT 7 GM 1 APPLIC TOP (08:59)
[2020-11-04] MEDS: IBUPROFEN 600 MG TABLET PO ×2 (12:44→21:01)
--- NOTE | 2020-11-04 15:34 | P.PNOB_ITS ---
Subjective - OB Subjective Date Patient Seen: 11/04/20 Time Patient Seen: 12:15 Interval history: Pt reports that she is feeing well. She denies feeling lightheaded. She denies any vision changes. headache, RUQ pain, LE edema. Her lochia is minimal. She has passed flatus and urinated. She is with good latch. Exam Narrative Exam Narrative: Gen: NAD, sitting comfortably in bed, appears well CV: RRR, no murmurs Resp: clear to auscultation bilaterally Abd: soft, appropriately tender, fundus firm and below the umbilicus, nondistended Ext: no edema Objective Labs Result Diagrams: 11/04/20 05:20 11/03/20 23:25 Labs: Laboratory Results - last 24 hr 11/02/20 11/03/20 11/03/20 20:10 17:15 23:25 WBC 17.8 H D RBC 4.08 Hgb 12.6 Hct 36.9 MCV 90.5 MCH 30.8 MCHC 34.0 RDW 14.0 Plt Count 219 Neut % (Auto) 87.0 H Lymph % (Auto) 9.2 L [place] % (Auto) 3.3 Eos % (Auto) 0.1 L Baso % (Auto) 0.4 Neut # (Auto) 80792 H Lymph # (Auto) 1600 [place] # (Auto) 600 Eos # (Auto) 0 Baso # (Auto) 100 PT INR APTT Sodium 133 L Potassium 3.8 Chloride 107 Carbon Dioxide 19 L BUN 6 L Creatinine 0.59 Estimated GFR > 60.0 BUN/Creatinine Ratio 10.2 Glucose 80 Calcium 9.4 Total Bilirubin 0.3 AST 25 ALT 13 Alkaline Phosphatase 101 Total Protein 6.6 Albumin 3.5 Globulin 3.1 Albumin/Globulin Ratio 1.1 SARS-CoV-2 (PCR) Negative 11/03/20 11/03/20 11/04/20 23:25 23:25 05:20 WBC 16.4 H RBC 3.53 L Hgb 11.0 L Hct 31.9 L MCV 90.3 MCH 31.0 MCHC 34.4 RDW 14.1 Plt Count 202 Neut % (Auto) 85.9 H Lymph % (Auto) 9.6 L [place] % (Auto) 4.1 Eos % (Auto) 0.1 L Baso % (Auto) 0.3 Neut # (Auto) 76503 H Lymph # (Auto) 1600 [place] # (Auto) 700 Eos # (Auto) 0 Baso # (Auto) 100 PT 10.9 INR 1.0 APTT 30 Sodium 133 L Potassium 3.9 Chloride 107 Carbon Dioxide 21 L BUN 6 L Creatinine 0.61 Estimated GFR > 60.0 BUN/Creatinine Ratio 9.8 Glucose 85 Calcium 8.9 Total Bilirubin 0.3 AST 26 ALT 15 Alkaline Phosphatase 89 Total Protein 5.8 L Albumin 3.1 L Globulin 2.7 Albumin/Globulin Ratio 1.1 SARS-CoV-2 (PCR) Assessment & Plan Plan Comments: 40yo PPD #1 s/p vacuum-assisted vaginal delivery complicated by hemorrhage. complicated by pre-eclampsia without severe features and GDMA1. BPs have remained in good range after the immediate period, when were slightly elevated likely due to pitocin boluses. They have never persisted in severe range. Pt asymptomatic. Overall doing well. - Normal care - Continue montior BPs closely - If > 150/100, will need to start antihypertensives - support - Iron supplement Plan for d/c tomorrow pending BPs remain in good range. Time Spent With Patient Time: Total time spent is greater than 50% in coordination of care (as documented) at patient's floor/unit and/or counseling patient: Time with patient: less than 15 minutes
[2020-11-04 17:02] VITALS: TEMP 36.9
[2020-11-04] MEDS: ACETAMINOPHEN 325 MG TABLET 650 MG PO (17:02)
--- NOTE | 2020-11-05 08:14 | PM.OBDS.1 ---
Discharge Providers Provider Date of admission: 11/02/20 19:48 Discharge Date: 11/05/20 Primary care physician: Leilani Shine MD Consults: 11/04/20 23:35 Consult to Head Esthetician Routine Comment: Discharge provider: Leilani Shine MD Summary Hospital Course Date Patient Seen: 11/05/20 Time Patient Seen: 07:30 Diagnoses: 37w1d gestation Rh positive GBS negative Pre-eclampsia without severe features GDMA1 AMA hemorrhage Vacuum-assisted vaginal delivery Hospital Course: The pt was admitted for IOL due to pre-elampsia. She received cytotec and pitocin for IOL, with an epidural for pain control. AROM was performed with clear fluid present. The patient progressed to complete dilation. Due to nonreassuring heart tones a vacuum was applied for delivery. Patient delivered a viable baby girl at 10:45 p.m. on 11/03/2020. There were no lacerations. The patient did have a hemorrhage from uterine atony requiring Hemabate, side effects, trans exam a passage, and Pitocin to control along with bimanual massage cough extraction. The patient remained hemodynamically stable, did not require any blood transfusions. , there are no additional complications. At the time of discharge she was voiding, ambulating, passing flatus without difficulty. Her lochia was decreasing appropriately. She was breast-feeding with good latch. Her pain was adequately controlled. Her blood pressures remained in acceptable range without any antihypertensives. She will follow up in clinic in 2 weeks for blood pressure check. The patient was instructed to check her blood pressures at home daily in the interim. Peripartum Data Infant Delivery Method: Assisted Delivery (vacuum) Laceration Description: None Episiotomy description: None Procedures: Vacuum-assisted vaginal delivery 1: Gender: Female Disposition of : home Discharge Diagnosis (1) Pre-eclampsia: Status: Acute (2) Gestational diabetes: Status: Acute (3) Advanced maternal age (AMA) in : Status: Acute (4) Vacuum-assisted vaginal delivery: Status: Acute (5) hemorrhage: Status: Acute Status at Discharge Cognitive/behavioral status at discharge: oriented Functional status at discharge: independent ambulation Overall status at discharge: patient is progressing back to baseline Time Spent with Patient Time attestation: Total time spent providing and/or coordinating discharge services: Time spent: Less than 30 minutes Objective Labs Result Diagrams: 11/04/20 05:20 11/03/20 23:25 Discharge Plan Discharge Plan Patient Disposition: Home Discharge orders & Medications Prescriptions: New acetaminophen 325 mg Tablet 650 mg PO Q6HR PRN (Reason: Pain, Mild (1-3)) Qty: 30 RF: 0 ferrous sulfate 325 mg (65 mg iron) Tablet 325 mg PO DAILY Qty: 30 RF: 0 ibuprofen 600 mg Tablet 600 mg PO Q6HR PRN (Reason: Pain, Mild (1-3)) Qty: 30 RF: 0 Continued prenat.vits,la,[id number]-lwkox Tablet 1 tab PO DAILY RF: 0 loratadine [Claritin] 10 mg tablet 10 mg PO DAILY RF: 0 Discontinued (DME) blood-glucose meter [Blood Glucose Monitoring] Kit See Rx Instructions .ROUTE .MEDSUPPLY Qty: 1 RF: 0 (DME) Blood Glucose Test Strip See Rx Instructions .ROUTE .MEDSUPPLY Qty: 100 RF: 1 (DME) lancets [BD Ultra Fine Lancets] 33 gauge misc See Rx Instructions .ROUTE .MEDSUPPLY Qty: 100 RF: 1 aspirin [Aspirin Low Dose] 81 mg tablet,delayed release (DR/EC) 81 mg PO DAILY RF: 0 Follow up/Referrals: Leilani Shine MD [Primary Care Provider] - 11/15/20 2:30 pm Diet/Activity/Treatments Diet: Diet as Tolerated and Regular Skin/Wound/Dressing Care Report to your healthcare provider any signs of infection, such as:: chills, fever and unusual drainage Visit Report/Discharge Packet Instructions: DI for Labor and Delivery, Vaginal Visit Report Forms: Patient Portal/API, Stroke Signs & Symptoms Discharge Data Primary Care Provider: Leilani Shine Discharges patient from system. Discharge Date/Time: 11/05/20 10:30
[2020-11-05 09:50] VITALS: BP 134/83; PULSE 77; RESP 16; TEMP 36.8
== END 2020-11-05 10:30 | disposition home or self-care (01) | DRG 807 ==
PROVIDERS: Admitting Provider Family Medicine; PCP Family Medicine; Referring Provider Family Medicine; Visit Provider Family Medicine
DX: O14.04 Mild to moderate pre-eclampsia, complicating childbirth (principal); Z37.0 Single live birth; O24.429 Gestational diabetes mellitus in childbirth, unspecified control; O72.1 Other immediate postpartum hemorrhage; Z3A.37 37 weeks gestation of pregnancy; O76 Abnormality in fetal heart rate and rhythm complicating labor and delivery; Z20.822 Contact with and (suspected) exposure to COVID-19
CPT/HCPCS: 01967; 36415; 59025; 59050; 59400; 80053; 85025; 85610; 85730; 86850; 86900; 86901; 87635; G0379; J0690; J2590; S0191

== ENCOUNTER → 2020-12-22 08:07 | Outpatient (CLI) | payer OTHER, SELFPAY ==
[2020-12-22 09:50] LABS: Glucose Fasting 99 mg/dL (70-100)
[2020-12-22 10:10] LABS: Glucose 1 Hour 108 mg/dL (70-170)
[2020-12-22 10:27] LABS: Glucose Tol Interpretation INTERPRETATION
[2020-12-22 10:55] LABS: Glucose 2 Hour 74 mg/dL (70-140)
== END ==
PROVIDERS: PCP Family Medicine; Referring Provider Family Medicine; Visit Provider Family Medicine
DX: O24.419 Gestational diabetes mellitus in pregnancy, unspecified control (principal)
CPT/HCPCS: 36415; 82951; 82952

== ENCOUNTER 2023-01-18 08:55 | Inpatient (IN) | payer OTHER, SELFPAY ==
[2023-01-18] VITALS (36 sets, daily range): BP systolic 119–144; BP diastolic 63–86; PULSE 77–101; RESP 14–18; TEMP 36.1–39.3; O2SAT 90–100; BMI 43.2; BMI 26.3
--- NOTE | 2023-01-18 09:17 | PC.NURSE ---
Pt has scattered bruising over extremities without hx of trauma. Pt skin is cool. Pt reports fatigue, SOB with exertion. Lungs are clear. PIV established and blood sent to lab.
[2023-01-18 09:40] LABS: INR 1.1 (0.9-1.3); Prothrombin Time 12.9 SECONDS (10.1-12.7)
[2023-01-18 09:42] LABS: PTT Partial Thromboplastin Tim 29 SECONDS (26-36)
[2023-01-18 09:45] LABS: Mean Corpuscular HGB Conc 35.8 % (30-36); Mean Corpuscular Hemoglobin 33.9 PG (26-34); Mean Corpuscular Volume 94.7 fL (80-100); Red Blood Cell Count 1.96 X10^6/uL (4.0-5.2); Red Cell Distribution Width 13.3 % (11.6-14.8); White Blood Cell Count 27.5 X10^3/uL (4.5-11.0)
[2023-01-18 09:46] LABS: Alanine Aminotransferase 17 IU/L (<35); Albumin 3.7 g/dL (3.5-5.0); Albumin Globulin Ratio 1.1 (1.0-2.8); Alkaline Phosphatase 52 U/L (38-126); Aspartate Aminotransferase 23 IU/L (14-36); BUN Creatinine Ratio 12.9 (6-22); Bilirubin Total 0.4 mg/dL (0.2-1.3); Blood Urea Nitrogen 8 mg/dL (7-17); Calcium 8.4 mg/dL (8.4-10.2); Carbon Dioxide 27 mmol/L (22-32); Chloride 104 mmol/L (98-107); Estimated Glomerular Filt Rate > 60 mL/min (>60); Globulin 3.3 g/dL (1.7-4.1); Glucose 109 mg/dL (70-100); HEMOLYSIS < 15 (0-50); Potassium 3.5 mmol/L (3.4-5.1); Sodium 137 mmol/L (137-145)
[2023-01-18 10:05] LABS: Add Manual Diff / Slide Review YES; Hematocrit 18.6 % (36-46); Hemoglobin 6.7 g/dL (12.0-16.0); Platelet Count 4 X10^3/uL (150-400)
--- NOTE | 2023-01-18 10:08 | ED.RECABL ---
HPI - Recheck/Abnormal Lab/Rx General Chief Complaint: Recheck/Abnormal Lab/Rx Stated Complaint: sent by [facility] poss anemia Time Seen by Provider: 01/18/23 09:20 Source: patient Mode of arrival: Ambulatory Limitations: no limitations History of Present Illness HPI narrative: This is a 42-year-old female on oral contraceptives history of depression anxiety and diagnosed with strep pharyngitis and treated with penicillin on 01/01/2023. Patient presents from walk-in clinic for feeling fatigued, chills, pale as well as noticing bruising and bleeding. Patient states in the past week she has noticed that she has quite a bit of bruising and she is noticed some very small areas of bruising like dots. She states she is had nosebleeds she is been having bleeding when she brushes her teeth. She states she had her regular menstrual cycle which should have ended after 4 days but has continued with clots. She notices this when she urinates. Patient states she is also noticed a little bit of a headache for the past several days. She denies any fevers. No chest pain, she has felt little short of breath with exertion. No nausea, no vomiting. No diarrhea constipation, no black or bloody stools. Patient states she takes an oral contraceptive. Denies any other daily medications. Denies any major surgeries. No known drug allergies. She notes she was treated with penicillin for 10 days which she has completed for strep pharyngitis. She states she was not having any symptoms she appreciated before this. No known family history of blood dyscrasias, clotting disorders or other issues. Related Data Home Medications Medication Instructions Recorded Confirmed loratadine 10 mg tablet (Claritin) 10 mg PO DAILY 04/08/20 01/18/23 Previous Rx's Medication Instructions Recorded acetaminophen 325 mg tablet 650 mg PO Q6HR PRN Pain, Mild 11/05/20 (1-3) #30 tabs ibuprofen 600 mg tablet 600 mg PO Q6HR PRN Pain, Mild 11/05/20 (1-3) #30 tabs norgestimate 0.25 mg-ethinyl 1 tab PO DAILY #28 tabs 08/08/22 estradiol 35 mcg tablet Allergies Allergy/AdvReac Type Severity Reaction Status Date / Time No Known Drug Allergies Allergy Verified 01/18/23 09:07 Review of Systems Review of Systems ROS Unobtainable: All systems reviewed & are unremarkable except as noted in HPI and below Patient History Medical History AMA (advanced maternal age) multigravida 35+ Anxiety (~2016) Depression (~2016) Left wrist fracture Migraine hemorrhage Preeclampsia (~01/09/05) Seasonal allergies (spontaneous vaginal delivery) (~10/29/98) Vacuum-assisted vaginal delivery Surgical History H/O dilation and curettage (~2001) Family History Mother Hypertension Father Hypertension Cataracts, bilateral Grandfather Old age Grandmother Old age Grandfather No problems noted. Grandmother Old age Brother No known health problems Social History marital status: unmarried,living together details: Son is in College : Melissa number of children: 2 household members: spouse and children lives independently: Yes pets and animals: Yes education level: high school occupational status: employed current occupational exposures/hazards: Yes Previous occupational history: works at the [employer] needs: No Smoking Status: Former smoker Tobacco: How many years used: 20 Smokeless tobacco user: dissolvable tobacco (Vaping - aware and using less) second hand exposure: No alcohol intake: former substance use type: does not use Smoking Status: Former smoker alcohol intake frequency: a few times a week Alcohol type: wine Substance Use Type: does not use Exam Narrative Exam Narrative: GEN: Pale well-nourished female, alert and oriented x 3, patient appears to be in mild distress. HEENT: Atraumatic, pupils are equal round reactive to light, extraocular movements are intact, nares are clear, there is conjunctival pallor. Throat is clear without any exudates, erythema, tonsillar enlargement or uvular deviation, no meningeal signs. HEART: Regular rate and rhythm without murmur, clicks, rubs. LUNGS:Lungs clear to auscultation, no wheezes, rales, crackles, chest moves symmetrically, no tachypnea or accessory muscle use ABD:bowel sounds normal, soft, non-tender, no guarding, rebound, rigidity, no masses noted, no hepatosplenomegaly :No CVA tenderness MSCL: Non-tender, no muscle atrophy, muscles strength 5/5 upper and lower extremities, full range of motion. NEURO:CN 2-12 intact, sensation normal. SKIN: No rash, warmth or erythema. Patient has multiple areas of ecchymosis on her extremities and torso. She also has small petechiae on her upper extremities appreciated. Initial Vital Signs Initial Vital Signs: Vital Signs Temperature 98.8 F 01/18/23 09:02 Pulse Rate 98 H 01/18/23 09:02 Respiratory Rate 16 01/18/23 09:02 Blood Pressure 136/67 01/18/23 09:02 Pulse Oximetry 100 01/18/23 09:02 Oxygen Delivery Method Room Air 01/18/23 09:02 Course Orders Ordered: Naloxone HCl (Naloxone 0.4 Mg/Ml Vial) 0.2 mg IV Q2MIN PRN PRN Reason: Opiate Reversal Norgestimate-Ethinyl Estradiol 0.25-35 Mg-Mcg Tablet 1 tab PO DAILY JOSE L Last Admin: 01/19/23 08:25 Dose: Not Given Documented By: BT Ondansetron HCl (Ondansetron 4 Mg Odt) 4 mg PO Q8HR PRN PRN Reason: Nausea And Vomiting Vital Signs Vital signs: Vital Signs - 8 hr 01/18/23 11:25 01/18/23 11:40 01/18/23 10:30 Temperature 99.4 F 99.6 F Pulse Rate 95 H 93 H 77 Respiratory Rate 18 16 Blood Pressure 142/76 H 135/71 Pulse Oximetry 100 01/18/23 11:07 01/18/23 11:24 01/18/23 11:24 Temperature Pulse Rate 83 100 H Respiratory Rate Blood Pressure 142/76 H Pulse Oximetry 90 L 100 01/18/23 11:27 01/18/23 11:27 01/18/23 11:30 Temperature Pulse Rate 94 H Respiratory Rate Blood Pressure 133/67 135/71 Pulse Oximetry 100 01/18/23 11:30 01/18/23 11:45 01/18/23 11:45 Temperature Pulse Rate 93 H 89 Respiratory Rate Blood Pressure 134/73 Pulse Oximetry 100 100 01/18/23 12:00 01/18/23 12:00 01/18/23 12:15 Temperature Pulse Rate 87 Respiratory Rate Blood Pressure 132/72 121/69 Pulse Oximetry 100 01/18/23 12:15 01/18/23 12:49 01/18/23 12:56 Temperature 99.9 F H 99.9 F H Pulse Rate 90 84 86 Respiratory Rate 16 16 Blood Pressure 128/77 126/71 Pulse Oximetry 100 01/18/23 13:12 01/18/23 12:20 01/18/23 12:20 Temperature 99.6 F Pulse Rate 83 86 Respiratory Rate 14 Blood Pressure 130/71 128/75 Pulse Oximetry 100 01/18/23 12:30 01/18/23 12:40 01/18/23 12:40 Temperature Pulse Rate 83 85 Respiratory Rate Blood Pressure 128/76 Pulse Oximetry 100 100 01/18/23 12:50 01/18/23 12:50 01/18/23 12:55 Temperature Pulse Rate 84 85 Respiratory Rate Blood Pressure 128/77 Pulse Oximetry 100 100 01/18/23 12:55 01/18/23 13:00 01/18/23 13:00 Temperature Pulse Rate 83 Respiratory Rate Blood Pressure 126/71 129/71 Pulse Oximetry 100 01/18/23 13:12 01/18/23 13:12 01/18/23 13:20 Temperature Pulse Rate 86 Respiratory Rate Blood Pressure 130/71 129/70 Pulse Oximetry 100 01/18/23 13:20 01/18/23 13:30 01/18/23 13:40 Temperature Pulse Rate 84 85 Respiratory Rate Blood Pressure 130/63 Pulse Oximetry 100 100 01/18/23 13:40 01/18/23 13:12 Temperature 97 F L Pulse Rate 88 100 H Respiratory Rate 18 Blood Pressure 125/70 Pulse Oximetry 100 MDM - Recheck/Abnormal Lab/Rx Lab Data 01/19/23 01:41 01/19/23 01:41 Labs: Lab Results 01/18/23 01/18/23 01/18/23 Range/Units 09:15 09:15 09:15 WBC 27.5 H (4.5-11.0) X10^3/uL RBC 1.96 L (4.0-5.2) X10^6/uL Hgb 6.7 L* (12.0-16.0) g/dL Hct 18.6 L* (36-46) % MCV 94.7 (80-100) fL MCH 33.9 (26-34) PG MCHC 35.8 (30-36) % RDW 13.3 (11.6-14.8) % Plt Count 4 L* (150-400) X10^3/uL Neut % (Auto) Not Reportable Lymph % (Auto) Not Reportable Jennings % (Auto) Not Reportable Eos % (Auto) Not Reportable Baso % (Auto) Not Reportable Lymph # (Auto) Not Reportable Jennings # (Auto) Not Reportable Baso # (Auto) Not Reportable Total Counted 100 Seg Neutrophils % 2.0 L (38-70) % Band Neutrophils % 2.0 L (3-7) % Lymphocytes % (Manual) 32.0 (25-45) % Atypical Lymphs % 43.0 H ( - 0) % Monocytes % (Manual) 11.0 (2-11) % Metamyelocytes % 6.0 H (-0) % Myelocytes % 3.0 H (-0) % Blast Cells % 1.0 H (-0) % Neutrophils # (Manual) 1100 L (5925-9368) /uL Nucleated RBCs 2 H ( - 0) #/Diff Platelet Estimate Decreased on smear RBC Morphology Normal morphology PT 12.9 H (10.1-12.7) SECONDS INR 1.1 (0.9-1.3) APTT 29 (26-36) SECONDS Fibrinogen (211-428) mg/dL Sodium 137 (137-145) mmol/L Potassium 3.5 (3.4-5.1) mmol/L Chloride 104 (98-107) mmol/L Carbon Dioxide 27 (22-32) mmol/L BUN 8 (7-17) mg/dL Creatinine 0.62 (0.52-1.04) mg/dL Estimated GFR > 60 (>60) mL/min BUN/Creatinine Ratio 12.9 (6-22) Glucose 109 H (70-100) mg/dL Calcium 8.4 (8.4-10.2) mg/dL Total Bilirubin 0.4 (0.2-1.3) mg/dL AST 23 (14-36) IU/L ALT 17 (<35) IU/L Alkaline Phosphatase 52 (38-126) U/L Lactate Dehydrogenase (120-246) U/L Total Protein 7.0 (6.3-8.2) g/dL Albumin 3.7 (3.5-5.0) g/dL Globulin 3.3 (1.7-4.1) g/dL Albumin/Globulin Ratio 1.1 (1.0-2.8) SARS-CoV-2 (PCR) (Negative) Blood Type Antibody Screen Crossmatch 01/18/23 01/18/23 01/18/23 Range/Units 09:15 09:15 09:15 WBC (4.5-11.0) X10^3/uL RBC (4.0-5.2) X10^6/uL Hgb (12.0-16.0) g/dL Hct (36-46) % MCV (80-100) fL MCH (26-34) PG MCHC (30-36) % RDW (11.6-14.8) % Plt Count (150-400) X10^3/uL Neut % (Auto) Lymph % (Auto) Jennings % (Auto) Eos % (Auto) Baso % (Auto) Lymph # (Auto) Jennings # (Auto) Baso # (Auto) Total Counted Seg Neutrophils % (38-70) % Band Neutrophils % (3-7) % Lymphocytes % (Manual) (25-45) % Atypical Lymphs % ( - 0) % Monocytes % (Manual) (2-11) % Metamyelocytes % (-0) % Myelocytes % (-0) % Blast Cells % (-0) % Neutrophils # (Manual) (5685-0682) /uL Nucleated RBCs ( - 0) #/Diff Platelet Estimate RBC Morphology PT (10.1-12.7) SECONDS INR (0.9-1.3) APTT (26-36) SECONDS Fibrinogen 611 H (211-428) mg/dL Sodium (137-145) mmol/L Potassium (3.4-5.1) mmol/L Chloride (98-107) mmol/L Carbon Dioxide (22-32) mmol/L BUN (7-17) mg/dL Creatinine (0.52-1.04) mg/dL Estimated GFR (>60) mL/min BUN/Creatinine Ratio (6-22) Glucose (70-100) mg/dL Calcium (8.4-10.2) mg/dL Total Bilirubin (0.2-1.3) mg/dL AST (14-36) IU/L ALT (<35) IU/L Alkaline Phosphatase (38-126) U/L Lactate Dehydrogenase 543 H (120-246) U/L Total Protein (6.3-8.2) g/dL Albumin (3.5-5.0) g/dL Globulin (1.7-4.1) g/dL Albumin/Globulin Ratio (1.0-2.8) SARS-CoV-2 (PCR) (Negative) Blood Type A Positive Antibody Screen Negative Crossmatch See Detail 01/18/23 Range/Units 11:50 WBC (4.5-11.0) X10^3/uL RBC (4.0-5.2) X10^6/uL Hgb (12.0-16.0) g/dL Hct (36-46) % MCV (80-100) fL MCH (26-34) PG MCHC (30-36) % RDW (11.6-14.8) % Plt Count (150-400) X10^3/uL Neut % (Auto) Lymph % (Auto) Jennings % (Auto) Eos % (Auto) Baso % (Auto) Lymph # (Auto) Jennings # (Auto) Baso # (Auto) Total Counted Seg Neutrophils % (38-70) % Band Neutrophils % (3-7) % Lymphocytes % (Manual) (25-45) % Atypical Lymphs % ( - 0) % Monocytes % (Manual) (2-11) % Metamyelocytes % (-0) % Myelocytes % (-0) % Blast Cells % (-0) % Neutrophils # (Manual) (2347-8810) /uL Nucleated RBCs ( - 0) #/Diff Platelet Estimate RBC Morphology PT (10.1-12.7) SECONDS INR (0.9-1.3) APTT (26-36) SECONDS Fibrinogen (211-428) mg/dL Sodium (137-145) mmol/L Potassium (3.4-5.1) mmol/L Chloride (98-107) mmol/L Carbon Dioxide (22-32) mmol/L BUN (7-17) mg/dL Creatinine (0.52-1.04) mg/dL Estimated GFR (>60) mL/min BUN/Creatinine Ratio (6-22) Glucose (70-100) mg/dL Calcium (8.4-10.2) mg/dL Total Bilirubin (0.2-1.3) mg/dL AST (14-36) IU/L ALT (<35) IU/L Alkaline Phosphatase (38-126) U/L Lactate Dehydrogenase (120-246) U/L Total Protein (6.3-8.2) g/dL Albumin (3.5-5.0) g/dL Globulin (1.7-4.1) g/dL Albumin/Globulin Ratio (1.0-2.8) SARS-CoV-2 (PCR) Negative (Negative) Blood Type Antibody Screen Crossmatch Imaging Data CT scan - head: Radiologist's Impression: Close Head CT (Signed) Darrick Vallejo - 01/18/23 Obstetrics US/Biophysical Profile (Signed) Beverley Hilario - 10/27/20 Obstetrics Ultrasound (Signed) Jadiel Victoria - 10/07/20 Obstetrics Ultrasound (Signed) Syd Ayala - 08/20/20 Ultrasound (Signed) Rosendo Feliciano - 06/25/20 [place] [address] CT Scan Report Signed Patient: Gurdeep Galdamez MR#: [id number] : 1980 Acct:[id number] Age/Sex: 42 / F Date of Service: 01/18/23 Loc: Accession Number: [id number] ?? Procedure: CT head/brain wo con Ordering Provider: Elena Villarreal D.O. PROCEDURE:? CT HEAD/BRAIN WO CON ? INDICATIONS:? headache, platelets of 4 ? TECHNIQUE:? Noncontrast 4.5 mm thick angled axial sections acquired from the foramen magnum to the vertex, with coronal and sagittal reformats.? For radiation dose reduction, the following was used:? automated exposure control, adjustment of mA and/or kV according to patient size.? ? COMPARISON:? None. ? FINDINGS:? Image quality:? Excellent.? ? CSF spaces:? Basal cisterns are patent.? No extra-axial fluid collections.? Ventricles are normal in size and shape.? ? Brain:? No midline shift.? No intracranial masses or hemorrhage.? Rodriguez-white matter interface is normal.? ? Skull and face:? Calvarium and visualized facial bones are intact, without suspicious lesions.? ? Sinuses:? Visualized sinuses and mastoids are clear.? ? IMPRESSION:? No acute intracranial process ? ? Dictated by: Darrick Vallejo M.D. on 01/18/2023 at 11:04 ? ? Approved by: Darrick Vallejo M.D. on 01/18/2023 at 11:05?? MDM Narrative Medical decision making narrative: This is a 42-year-old female previously healthy who presents with atypical bruising and bleeding for the past week. Patient has platelets of 4, hemoglobin 6.7 with a white count of 27. Last check was in November of 2020 her hemoglobin was 11 at that time immediately she did have elevation her white count 16-17 range but not persistently. In October she had white count of 10 and before that 13.9 in 2019 and 11.6 and 2020. In the past platelets of always been appropriate in the 2-300 range. Hemoglobin had been 12-13 range. Patient has 43% atypical lymphocytes, bands are 2, myelocytes or 3, blast cells are 1 with metamyelocytes of 6. Patient's INR is 1.1, PTT 29 with a PT of 12.9, fibrinogen level was sent request of Dr. Dexter for Oncology. CMP is overall with a glucose of 109. Head CT was ordered as patient has headache with platelets of 4 and is high-risk for spontaneous bleeding. This is negative. Discussed with Dr. Dexter of oncology plan to transfused with platelets as well as packed red blood cells. He does recommend transfer for workup for possible ALL versus BOAZ he did recommend add fibrinogen level. He recommends transfer to [facility], [facility] or [facility] for additional work up and treatment. Discussed all recommendations with patient. She expressed understanding. She agrees for transfusion of platelets as well as PRBCs [facility] and [facility] is at capacity, -defers and states more appropriate with [facility]-spoke with Dr. Chavez the oncology recommends adding flow cytometry, waiting for peripheral smear transfusing platelets and blood. He would recommend a platelet goal of 50 if having continued bleeding and platelet goal of 10-20 if no continued bleeding. If patient is not responding, questions for flow cytometry and smear results to evaluate more for ITP although he notes this seems less likely with her low hemoglobin but not impossible. Next steps would include bone marrow biopsy vs. steroids for ITP. He does not feel patient requires transfer emergently today but does agree with plan to admit locally, follow labs and if needed still have transfer. We did discuss recommendations from local oncology and other facilities not currently available. Spoke with Dr. Shine who accepts for inpatient. Discussed plan to transfuse 2 units PRBCs as well as platelets. Peripheral smear should be back tomorrow can reconsult with oncology, flow cytometry might likely not be but can decide after that if patient needs continued hospitalization appropriate for outpatient follow-up or transfer at that time. Discussed updated plan with patient, she feels comfortable with this. Discharge Plan Departure Patient Disposition: Admitted As Inpatient Clinical Impression: Thrombocytopenia, Anemia, Leukocytosis Admit Date/Time: 01/18/23 13:55 Admit Provider: Leilani Shine
[2023-01-18 10:36] LABS: Neutrophils Absolute Manual 1100 /uL (3000-5900); Nucleated Red Blood Cells 2 #/Diff; Total Cells Counted 100
[2023-01-18 10:37] LABS: Platelet Estimate Decreased on smear; RBC Morphology Normal Morphology
--- NOTE | 2023-01-18 10:49 | DI.CT.S_ITS ---
PROCEDURE: CT HEAD/BRAIN WO CON INDICATIONS: headache, platelets of 4 TECHNIQUE: Noncontrast 4.5 mm thick angled axial sections acquired from the foramen magnum to the vertex, with coronal and sagittal reformats. For radiation dose reduction, the following was used: automated exposure control, adjustment of mA and/or kV according to patient size. COMPARISON: None. FINDINGS: Image quality: Excellent. CSF spaces: Basal cisterns are patent. No extra-axial fluid collections. Ventricles are normal in size and shape. Brain: No midline shift. No intracranial masses or hemorrhage. Rodriguez-white matter interface is normal. Skull and face: Calvarium and visualized facial bones are intact, without suspicious lesions. Sinuses: Visualized sinuses and mastoids are clear. IMPRESSION: No acute intracranial process Dictated by: Darrick Vallejo M.D. on 01/18/2023 at 11:04 Approved by: Darrick Vallejo M.D. on 01/18/2023 at 11:05
[2023-01-18 11:35] LABS: Fibrinogen 611 mg/dL (211-428); Lactate Dehydrogenase 543 U/L (120-246)
--- NOTE | 2023-01-18 11:40 | PC.NURSE ---
Addendum entered by Yazmin Fang CNA 01/18/23 12:09: 1209: called back and thinks it is more beneficial to be seen at . Original Note: ARON Note: Attempted to find placement for transfer at , [facility], and . [facility] is at capacity and cannot take pt. Spoke with Lety from transfer center at ([phone]) and Mally from transfer center at ([phone]) and pt is being processed at both hospitals. Tranfer centers will call back with an update.
--- NOTE | 2023-01-18 11:47 | PC.NURSE ---
Rate for PRBCs increased to 300ml/hr after 15min
[2023-01-18 12:19] LABS: COVID19 -Nasal RAPID Negative (Negative)
--- NOTE | 2023-01-18 14:32 | PC.NURSE ---
Second set of vitals in [facility] on 1312 are wrong and need to be removed but unable to do so on [facility]. PT had fever of 102.) after blood was completed. Pt denies any other sx. Blood bank notified and PRBC bag sent to lab. Lavender top drawn off PIV and urine sent down to lab per blood bank.
--- NOTE | 2023-01-18 15:50 | P.HP_ITS ---
History of Present Illness History of Present Illness Date Patient Seen: 01/18/23 Time Patient Seen: 16:34 Chief complaint: sent by [facility] poss anemia Narrative: Pt is a 42yo woman without significant medical history who presented with easy bruising, fatigue, and chills. The pt reports that she was diagnosed with strep throat on 01/01. She did not have a fever at that time. She completed a 10 day course of penicillin without any issues. Since then, her throat has continued to be minimally sore. She states for the past week she has been bruising very easily on her arms and legs. She is having small nose bleeds everytime she blows her nose. She had a much heavier than usual menses, that continues to be present for longer than normal and she is still passing small clots. She has noticed small amounts of blood in her urine as well. In the past couple days, she has noticed small red dots on her body as well. She has been feeling very chilled all the time for the past week. Her family has commented that she appears pale. She has been excessively fatigued. She denies any recent chest pain or SOB. She denies any cough, congestion, or ear pain. She denies any abdominal pain, diarrhea, or constipation. She denies any dysuria. She denies any known fevers. The pt denies any family history of bleeding disorders or cancer. Prior to her strep throat, she had been feeling well. She has been a little more stressed recently due to her daughter's graduation. [facility] Medical History AMA (advanced maternal age) multigravida 35+ Anxiety (~2016) Depression (~2016) Left wrist fracture Migraine hemorrhage Preeclampsia (~01/09/05) Seasonal allergies (spontaneous vaginal delivery) (~10/29/98) Vacuum-assisted vaginal delivery Surgical History H/O dilation and curettage (~2001) Family History Mother Hypertension Father Hypertension Cataracts, bilateral Grandfather Old age Grandmother Old age Grandfather No problems noted. Grandmother Old age Brother No known health problems Social History marital status: unmarried,living together details: Son is in College : Melissa number of children: 2 household members: spouse and children lives independently: Yes pets and animals: Yes education level: high school occupational status: employed current occupational exposures/hazards: Yes Previous occupational history: works at the [email or web address] needs: No Smoking Status: Former smoker Tobacco: How many years used: 20 Smokeless tobacco user: dissolvable tobacco (Vaping - aware and using less) second hand exposure: No alcohol intake: former substance use type: does not use Meds Home Medications and Allergies Home Medications Medication Instructions Recorded Confirmed Type loratadine 10 mg tablet (Claritin) 10 mg PO DAILY 04/08/20 01/18/23 History acetaminophen 325 mg tablet 650 mg PO Q6HR PRN Pain, Mild 11/05/20 01/18/23 Rx (1-3) #30 tabs ibuprofen 600 mg tablet 600 mg PO Q6HR PRN Pain, Mild 11/05/20 01/18/23 Rx (1-3) #30 tabs norgestimate 0.25 mg-ethinyl 1 tab PO DAILY #28 tabs 08/08/22 01/18/23 Rx estradiol 35 mcg tablet Allergies Allergy/AdvReac Type Severity Reaction Status Date / Time No Known Drug Allergies Allergy Verified 01/18/23 09:07 Exam Vital Signs (past 8 hours): - 01/18/23 09:02 01/18/23 11:25 01/18/23 11:40 Temperature 98.8 F 99.4 F 99.6 F Pulse Rate 98 H 95 H 93 H Respiratory Rate 16 18 16 Blood Pressure 136/67 142/76 H 135/71 Pulse Oximetry 100 Oxygen Delivery Method Room Air 01/18/23 09:02 01/18/23 09:30 01/18/23 10:00 Temperature Pulse Rate 86 79 78 Respiratory Rate Blood Pressure Pulse Oximetry 100 98 99 Oxygen Delivery Method 01/18/23 10:30 01/18/23 11:07 01/18/23 11:24 Temperature Pulse Rate 77 83 100 H Respiratory Rate Blood Pressure Pulse Oximetry 100 90 L 100 Oxygen Delivery Method 01/18/23 11:24 01/18/23 11:27 01/18/23 11:27 Temperature Pulse Rate 94 H Respiratory Rate Blood Pressure 142/76 H 133/67 Pulse Oximetry 100 Oxygen Delivery Method 01/18/23 11:30 01/18/23 11:30 01/18/23 11:45 Temperature Pulse Rate 93 H Respiratory Rate Blood Pressure 135/71 134/73 Pulse Oximetry 100 Oxygen Delivery Method 01/18/23 11:45 01/18/23 12:00 01/18/23 12:00 Temperature Pulse Rate 89 87 Respiratory Rate Blood Pressure 132/72 Pulse Oximetry 100 100 Oxygen Delivery Method 01/18/23 12:15 01/18/23 12:15 01/18/23 12:49 Temperature 99.9 F H Pulse Rate 90 84 Respiratory Rate 16 Blood Pressure 121/69 128/77 Pulse Oximetry 100 Oxygen Delivery Method 01/18/23 12:56 01/18/23 13:12 01/18/23 12:20 Temperature 99.9 F H 99.6 F Pulse Rate 86 83 Respiratory Rate 16 14 Blood Pressure 126/71 130/71 128/75 Pulse Oximetry Oxygen Delivery Method 01/18/23 12:20 01/18/23 12:30 01/18/23 12:40 Temperature Pulse Rate 86 83 85 Respiratory Rate Blood Pressure Pulse Oximetry 100 100 100 Oxygen Delivery Method 01/18/23 12:40 01/18/23 12:50 01/18/23 12:50 Temperature Pulse Rate 84 Respiratory Rate Blood Pressure 128/76 128/77 Pulse Oximetry 100 Oxygen Delivery Method 01/18/23 12:55 01/18/23 12:55 01/18/23 13:00 Temperature Pulse Rate 85 Respiratory Rate Blood Pressure 126/71 129/71 Pulse Oximetry 100 Oxygen Delivery Method 01/18/23 13:00 01/18/23 13:12 01/18/23 13:12 Temperature Pulse Rate 83 86 Respiratory Rate Blood Pressure 130/71 Pulse Oximetry 100 100 Oxygen Delivery Method 01/18/23 13:20 01/18/23 13:20 01/18/23 13:30 Temperature Pulse Rate 84 85 Respiratory Rate Blood Pressure 129/70 Pulse Oximetry 100 100 Oxygen Delivery Method 01/18/23 13:40 01/18/23 13:40 01/18/23 13:12 Temperature 97 F L Pulse Rate 88 100 H Respiratory Rate 18 Blood Pressure 130/63 125/70 Pulse Oximetry 100 Oxygen Delivery Method 01/18/23 14:23 01/18/23 14:00 01/18/23 14:00 Temperature 102.0 F H Pulse Rate 100 H 101 H Respiratory Rate 18 Blood Pressure 125/70 131/71 Pulse Oximetry 98 Oxygen Delivery Method 01/18/23 14:19 01/18/23 14:19 01/18/23 14:20 Temperature Pulse Rate 98 H Respiratory Rate Blood Pressure 132/73 125/70 Pulse Oximetry 97 Oxygen Delivery Method 01/18/23 14:20 01/18/23 14:34 01/18/23 14:51 Temperature 102.7 F H Pulse Rate 96 H 98 H 97 H Respiratory Rate 16 Blood Pressure 138/86 Pulse Oximetry 97 100 98 Oxygen Delivery Method 01/18/23 15:31 Temperature 101.4 F H Pulse Rate Respiratory Rate Blood Pressure Pulse Oximetry Oxygen Delivery Method Oxygen Delivery Method Room Air Narrative Exam Narrative: Gen: NAD, sitting comfortably in bed, appears slightly pale, tearful HEENT: OP with mild erythema but no exudates, sclera clear bilaterally Neck: no LAD CV: RRR, no murmurs Resp: clear to auscultation bilaterally, no wheezes or crackles Abd: soft, nontender, nondistended, normoactive bowel sounds Ext: no edema Skin: bilateral arms with multiple large ecchymosis at various stages of heeling, many scattered petechiae present Objective Labs 01/18/23 09:15 01/18/23 09:15 Labs: Laboratory Results - last 24 hr 01/18/23 01/18/23 01/18/23 09:15 09:15 09:15 WBC 27.5 H RBC 1.96 L Hgb 6.7 L* Hct 18.6 L* MCV 94.7 MCH 33.9 MCHC 35.8 RDW 13.3 Plt Count 4 L* Neut % (Auto) Not Reportable Lymph % (Auto) Not Reportable [place] % (Auto) Not Reportable Eos % (Auto) Not Reportable Baso % (Auto) Not Reportable Lymph # (Auto) Not Reportable [place] # (Auto) Not Reportable Baso # (Auto) Not Reportable Total Counted 100 Seg Neutrophils % 2.0 L Band Neutrophils % 2.0 L Lymphocytes % (Manual) 32.0 Atypical Lymphs % 43.0 H Monocytes % (Manual) 11.0 Metamyelocytes % 6.0 H Myelocytes % 3.0 H Blast Cells % 1.0 H Neutrophils # (Manual) 1100 L Nucleated RBCs 2 H Platelet Estimate Decreased on smear RBC Morphology Normal morphology PT 12.9 H INR 1.1 APTT 29 Fibrinogen Sodium 137 Potassium 3.5 Chloride 104 Carbon Dioxide 27 BUN 8 Creatinine 0.62 Estimated GFR > 60 BUN/Creatinine Ratio 12.9 Glucose 109 H Calcium 8.4 Total Bilirubin 0.4 AST 23 ALT 17 Alkaline Phosphatase 52 Lactate Dehydrogenase Total Protein 7.0 Albumin 3.7 Globulin 3.3 Albumin/Globulin Ratio 1.1 SARS-CoV-2 (PCR) Blood Type Antibody Screen Crossmatch Transfusion React Rpt Donor Unit # Lab Clerical Err Check Pre-Trans Blood Type Pre-Trans Vis Hemolysis Pre-Trans Antibody Scrn Post-Trans Blood Type Post-Tx Visible Hemolys Post-Trans Antibody Scrn 01/18/23 01/18/23 01/18/23 09:15 09:15 09:15 WBC RBC Hgb Hct MCV MCH MCHC RDW Plt Count Neut % (Auto) Lymph % (Auto) [place] % (Auto) Eos % (Auto) Baso % (Auto) Lymph # (Auto) [place] # (Auto) Baso # (Auto) Total Counted Seg Neutrophils % Band Neutrophils % Lymphocytes % (Manual) Atypical Lymphs % Monocytes % (Manual) Metamyelocytes % Myelocytes % Blast Cells % Neutrophils # (Manual) Nucleated RBCs Platelet Estimate RBC Morphology PT INR APTT Fibrinogen 611 H Sodium Potassium Chloride Carbon Dioxide BUN Creatinine Estimated GFR BUN/Creatinine Ratio Glucose Calcium Total Bilirubin AST ALT Alkaline Phosphatase Lactate Dehydrogenase 543 H Total Protein Albumin Globulin Albumin/Globulin Ratio SARS-CoV-2 (PCR) Blood Type A Positive Antibody Screen Negative Crossmatch See Detail Transfusion React Rpt Donor Unit # Lab Clerical Err Check Pre-Trans Blood Type Pre-Trans Vis Hemolysis Pre-Trans Antibody Scrn Post-Trans Blood Type Post-Tx Visible Hemolys Post-Trans Antibody Scrn 01/18/23 01/18/23 11:50 14:51 WBC RBC Hgb Hct MCV MCH MCHC RDW Plt Count Neut % (Auto) Lymph % (Auto) [place] % (Auto) Eos % (Auto) Baso % (Auto) Lymph # (Auto) [place] # (Auto) Baso # (Auto) Total Counted Seg Neutrophils % Band Neutrophils % Lymphocytes % (Manual) Atypical Lymphs % Monocytes % (Manual) Metamyelocytes % Myelocytes % Blast Cells % Neutrophils # (Manual) Nucleated RBCs Platelet Estimate RBC Morphology PT INR APTT Fibrinogen Sodium Potassium Chloride Carbon Dioxide BUN Creatinine Estimated GFR BUN/Creatinine Ratio Glucose Calcium Total Bilirubin AST ALT Alkaline Phosphatase Lactate Dehydrogenase Total Protein Albumin Globulin Albumin/Globulin Ratio SARS-CoV-2 (PCR) Negative Blood Type Antibody Screen Crossmatch Transfusion React Rpt No discrepancies Donor Unit # [id number] Lab Clerical Err Check No error found Pre-Trans Blood Type A positive Pre-Trans Vis Hemolysis No Pre-Trans Antibody Scrn Not Reportable Post-Trans Blood Type A positive Post-Tx Visible Hemolys No Post-Trans Antibody Scrn Not Reportable Assessment & Plan Assessment & Plan narrative: Pt is a 42yo previously healthy woman who presented with easy bruising, fatigue, and chills found to have significant blood dyscrasias when previously normal. 1) Blood dyscrasias: Pt with significant thrombocytopenia with platelet count of 4 (previously 202 11/2020), anemia with Hgb 6.7 (previously 11.0 immediately 11/2020), and leukocytosis with WBC count of 27.5 (last 16.4 postpartu m as well). 43% atypical lymphocytes, 1% blasts, 6% metamyelocytes, 3% myelocytes, and neutrophil count of 1100. Overall very concerning for leukemia, although atypical ITP also on the differential, especially in light of recent strep infection. Dr Villarreal in the ED consulted with Oncology through and the . They recommended completion of blood smear and flow cytometry, dependent on results consider treatment with steroids for ITP vs transfer for bone marrow biopsy/additional work-up and treatment. The pt is currently hemodynamically stable without any acute bleeding present. - S/P 2 units PRBCs in the ED - Transfuse 2 units platelets. Goal platelet count > 20, if bleeding > 50 - Repeat CBC after transfusions complete - Await results of blood smear and flow cytometry - Plan to consult with Oncology again tomorrow after blood smear returns FEN: General diet Code: Full DVT ppx: SCDs due to platelet count Dispo: Pending additional work-up as above. Likely to require transfer to outside facility. Quality VTE Deep Vein Thrombosis/Pulmonary Embolism Present on Admission: No
[2023-01-18 17:05] LABS: Strep Grp A by PCR Rapid Negative (Negative)
[2023-01-19] VITALS (7 sets, daily range): BP systolic 117–127; BP diastolic 70–77; PULSE 76–98; RESP 15–18; TEMP 36.2–38.6; O2SAT 97–99
[2023-01-19 01:59] LABS: INR 1.2 (0.9-1.3); Prothrombin Time 13.9 SECONDS (10.1-12.7)
[2023-01-19 02:02] LABS: PTT Partial Thromboplastin Tim 29 SECONDS (26-36)
[2023-01-19 02:04] LABS: Alanine Aminotransferase 21 IU/L (<35); Albumin 3.4 g/dL (3.5-5.0); Alkaline Phosphatase 57 U/L (38-126); Aspartate Aminotransferase 24 IU/L (14-36); Bilirubin Total 0.5 mg/dL (0.2-1.3); Blood Urea Nitrogen 6 mg/dL (7-17); Calcium 8.3 mg/dL (8.4-10.2); Carbon Dioxide 27 mmol/L (22-32); Chloride 102 mmol/L (98-107); Estimated Glomerular Filt Rate > 60 mL/min (>60); Globulin 3.3 g/dL (1.7-4.1); Glucose 134 mg/dL (70-100); HEMOLYSIS < 15 (0-50); Potassium 3.7 mmol/L (3.4-5.1); Sodium 134 mmol/L (137-145); Total Protein 6.7 g/dL (6.3-8.2)
[2023-01-19 02:13] LABS: Hemoglobin 8.6 g/dL (12.0-16.0); Mean Corpuscular HGB Conc 36.1 % (30-36); Mean Corpuscular Hemoglobin 32.9 PG (26-34); Mean Corpuscular Volume 91.3 fL (80-100); Red Blood Cell Count 2.61 X10^6/uL (4.0-5.2); Red Cell Distribution Width 14.5 % (11.6-14.8); White Blood Cell Count 26.9 X10^3/uL (4.5-11.0)
[2023-01-19 02:17] LABS: Hematocrit 23.9 % (36-46)
[2023-01-19 02:18] LABS: Add Manual Diff / Slide Review YES; Platelet Count 94 X10^3/uL (150-400)
[2023-01-19 06:56] LABS: Neutrophils Absolute Manual 1883 /uL (3000-5900); Platelet Estimate Decreased on smear; RBC Morphology Norm; Total Cells Counted 100
--- NOTE | 2023-01-19 09:22 | P.PN_ITS ---
Subjective Subjective Date Patient Seen: 01/19/23 Interval history: The pt denies any acute concerns this morning. She states the clotting with urination seems to have resolved. She continues to feel fatigued. She was able to walk up and down the [place] without any difficulty, however. She remains stressed and anxious about her pending diagnosis. Exam Vital Signs (past 8 hours): - 01/19/23 01:54 01/19/23 04:10 01/19/23 07:36 Temperature 101.5 F H 101.3 F H 99 F Pulse Rate 90 86 Respiratory Rate 18 15 Blood Pressure 127/73 117/76 Pulse Oximetry 97 99 Oxygen Flow Rate 0 0 Oxygen Delivery Method Room Air Oxygen Flow Rate 0 Narrative Exam Narrative: Gen: NAD, sitting comfortably in bed, appears less pale than yesterday CV: RRR, no murmurs Resp: clear to auscultation bilaterally Abd: soft, nontender, nondistended, normoactive bowel sounds Ext: no edema Objective Labs 01/19/23 01:41 01/19/23 01:41 Labs: Laboratory Results - last 24 hr 01/18/23 01/18/23 01/18/23 09:15 09:15 09:15 WBC 27.5 H RBC 1.96 L Hgb 6.7 L* Hct 18.6 L* MCV 94.7 MCH 33.9 MCHC 35.8 RDW 13.3 Plt Count 4 L* Neut % (Auto) Not Reportable Lymph % (Auto) Not Reportable [place] % (Auto) Not Reportable Eos % (Auto) Not Reportable Baso % (Auto) Not Reportable Lymph # (Auto) Not Reportable [place] # (Auto) Not Reportable Baso # (Auto) Not Reportable Total Counted 100 Seg Neutrophils % 2.0 L Band Neutrophils % 2.0 L Lymphocytes % (Manual) 32.0 Atypical Lymphs % 43.0 H Monocytes % (Manual) 11.0 Metamyelocytes % 6.0 H Myelocytes % 3.0 H Blast Cells % 1.0 H Neutrophils # (Manual) 1100 L Nucleated RBCs 2 H Platelet Estimate Decreased on smear RBC Morphology Normal morphology PT 12.9 H INR 1.1 APTT 29 Fibrinogen Sodium 137 Potassium 3.5 Chloride 104 Carbon Dioxide 27 BUN 8 Creatinine 0.62 Estimated GFR > 60 BUN/Creatinine Ratio 12.9 Glucose 109 H Calcium 8.4 Total Bilirubin 0.4 AST 23 ALT 17 Alkaline Phosphatase 52 Lactate Dehydrogenase Total Protein 7.0 Albumin 3.7 Globulin 3.3 Albumin/Globulin Ratio 1.1 SARS-CoV-2 (PCR) Group A Strep (PCR) Blood Type Antibody Screen Crossmatch Transfusion React Rpt Donor Unit # Lab Clerical Err Check Pre-Trans Blood Type Pre-Trans Vis Hemolysis Pre-Trans Antibody Scrn Post-Trans Blood Type Post-Tx Visible Hemolys Post-Trans Antibody Scrn Reaction Path Interpret 01/18/23 01/18/23 01/18/23 09:15 09:15 09:15 WBC RBC Hgb Hct MCV MCH MCHC RDW Plt Count Neut % (Auto) Lymph % (Auto) [place] % (Auto) Eos % (Auto) Baso % (Auto) Lymph # (Auto) [place] # (Auto) Baso # (Auto) Total Counted Seg Neutrophils % Band Neutrophils % Lymphocytes % (Manual) Atypical Lymphs % Monocytes % (Manual) Metamyelocytes % Myelocytes % Blast Cells % Neutrophils # (Manual) Nucleated RBCs Platelet Estimate RBC Morphology PT INR APTT Fibrinogen 611 H Sodium Potassium Chloride Carbon Dioxide BUN Creatinine Estimated GFR BUN/Creatinine Ratio Glucose Calcium Total Bilirubin AST ALT Alkaline Phosphatase Lactate Dehydrogenase 543 H Total Protein Albumin Globulin Albumin/Globulin Ratio SARS-CoV-2 (PCR) Group A Strep (PCR) Blood Type A Positive Antibody Screen Negative Crossmatch See Detail Transfusion React Rpt Donor Unit # Lab Clerical Err Check Pre-Trans Blood Type Pre-Trans Vis Hemolysis Pre-Trans Antibody Scrn Post-Trans Blood Type Post-Tx Visible Hemolys Post-Trans Antibody Scrn Reaction Path Interpret 01/18/23 01/18/23 01/18/23 11:50 14:51 16:54 WBC RBC Hgb Hct MCV MCH MCHC RDW Plt Count Neut % (Auto) Lymph % (Auto) [place] % (Auto) Eos % (Auto) Baso % (Auto) Lymph # (Auto) [place] # (Auto) Baso # (Auto) Total Counted Seg Neutrophils % Band Neutrophils % Lymphocytes % (Manual) Atypical Lymphs % Monocytes % (Manual) Metamyelocytes % Myelocytes % Blast Cells % Neutrophils # (Manual) Nucleated RBCs Platelet Estimate RBC Morphology PT INR APTT Fibrinogen Sodium Potassium Chloride Carbon Dioxide BUN Creatinine Estimated GFR BUN/Creatinine Ratio Glucose Calcium Total Bilirubin AST ALT Alkaline Phosphatase Lactate Dehydrogenase Total Protein Albumin Globulin Albumin/Globulin Ratio SARS-CoV-2 (PCR) Negative Group A Strep (PCR) Negative Blood Type Antibody Screen Crossmatch Transfusion React Rpt No discrepancies Donor Unit # [id number] Lab Clerical Err Check No error found Pre-Trans Blood Type A positive Pre-Trans Vis Hemolysis No Pre-Trans Antibody Scrn Negative Post-Trans Blood Type A positive Post-Tx Visible Hemolys No Post-Trans Antibody Scrn Negative Reaction Path Interpret Comments: 01/19/23 01/19/23 01/19/23 01:41 01:41 01:41 WBC 26.9 H RBC 2.61 L Hgb 8.6 L Hct 23.9 L MCV 91.3 D MCH 32.9 MCHC 36.1 H RDW 14.5 Plt Count 94 L Neut % (Auto) Not Reportable Lymph % (Auto) Not Reportable [place] % (Auto) Not Reportable Eos % (Auto) Not Reportable Baso % (Auto) Not Reportable Lymph # (Auto) Not Reportable [place] # (Auto) Not Reportable Baso # (Auto) Not Reportable Total Counted 100 Seg Neutrophils % 6.0 L D Band Neutrophils % 1.0 L Lymphocytes % (Manual) 35.0 Atypical Lymphs % 40.0 H Monocytes % (Manual) 11.0 Metamyelocytes % 5.0 H Myelocytes % 2.0 H Blast Cells % Neutrophils # (Manual) 1883 L Nucleated RBCs Platelet Estimate Decreased on smear RBC Morphology Norm PT 13.9 H INR 1.2 APTT 29 Fibrinogen Sodium 134 L Potassium 3.7 Chloride 102 Carbon Dioxide 27 BUN 6 L Creatinine 0.67 Estimated GFR > 60 BUN/Creatinine Ratio 9.0 Glucose 134 H Calcium 8.3 L Total Bilirubin 0.5 AST 24 ALT 21 Alkaline Phosphatase 57 Lactate Dehydrogenase Total Protein 6.7 Albumin 3.4 L Globulin 3.3 Albumin/Globulin Ratio 1.0 SARS-CoV-2 (PCR) Group A Strep (PCR) Blood Type Antibody Screen Crossmatch Transfusion React Rpt Donor Unit # Lab Clerical Err Check Pre-Trans Blood Type Pre-Trans Vis Hemolysis Pre-Trans Antibody Scrn Post-Trans Blood Type Post-Tx Visible Hemolys Post-Trans Antibody Scrn Reaction Path Interpret [facility] Medical History AMA (advanced maternal age) multigravida 35+ Anxiety (~2017) Depression (~2017) Left wrist fracture Migraine hemorrhage Preeclampsia (~01/09/05) Seasonal allergies (spontaneous vaginal delivery) (~10/29/98) Vacuum-assisted vaginal delivery Surgical History H/O dilation and curettage (~2001) Family History Mother Hypertension Father Hypertension Cataracts, bilateral Grandfather Old age Grandmother Old age Grandfather No problems noted. Grandmother Old age Brother No known health problems Social History marital status: unmarried,living together details: Son is in College : Melissa number of children: 2 household members: spouse and children lives independently: Yes pets and animals: Yes education level: high school occupational status: employed current occupational exposures/hazards: Yes Previous occupational history: works at [employer] needs: No Smoking Status: Former smoker Tobacco: How many years used: 20 Smokeless tobacco user: dissolvable tobacco (Vaping - aware and using less) second hand exposure: No alcohol intake: former substance use type: does not use Assessment & Plan Assessment & Plan narrative: Pt is a 42yo previously healthy woman who presented with easy bruising, fatigue, and chills found to have significant blood dyscrasias when previously normal.? 1)? Blood dyscrasias:? Pt at admission with significant thrombocytopenia with platelet count of 4 (previously 202 11/2020), anemia with Hgb 6.7 (previously 11.0 immediately 11/2020), and leukocytosis with WBC count of 27.5 (last 16.4 as well).? 43% atypical lymphocytes, 1% blasts, 6% metamyelocytes, 3% myelocytes, and neutrophil count of 1100.? Overall very concerning for leukemia, although atypical ITP also on the differential, especi ally in light of recent strep infection.? Dr Villarreal in the ED consulted with Oncology through and the .? They recommended completion of blood smear and flow cytometry, dependent on results consider treatment with steroids for ITP vs transfer for bone marrow biopsy/additional work-up and treatment.? The pt is currently hemodynamically stable without any acute bleeding present. Platelet and H/H significantly improved after infusions. - Continue to trend CBC - Await results of blood smear and flow cytometry - Plan to consult with Oncology after blood smear returns, hopefully later today FEN:? General diet Code:? Full DVT ppx:? SCDs due to platelet count Dispo:? Pending additional work-up as above.? Likely to require transfer to outside facility. Quality VTE Deep Vein Thrombosis/Pulmonary Embolism Present on Admission: No
[2023-01-19] MEDS: ACETAMINOPHEN 325 MG TABLET 650 MG PO (10:27)
--- NOTE | 2023-01-19 11:36 | CM.DANOTE ---
DCP: Chart review for case, met with patient and spouse at bedside, they agree to case management assessment. Completed DCP assessment based on information available. Patient is a 42 year old presented to ER admitted to care of Dr. Shine. PCP is Dr. Shine Payor: [facility] CC: Bruising, weakness, fever, found to have PLTS of 4 in clinic. Introduced self to case management role. 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 Supportive spouse at bedside who relays that oldest daughter is caring for other 2 children at home. P: Possible transfer to outside facility. Dulce Myrick RN, CM Discharge Planning/Care Management CM Discharge Assessment Start: 01/19/23 11:28 Freq: Status: Active Protocol: Document 01/19/23 11:29 BQ (Rec: 01/19/23 11:32 BQ [id number]) Discharge Planning Assessment Assigned Technologist Development Dulce Myrick RN, CM Advance Directives? No History Provided By Patient,Medical Record Has Patient been admitted in last 30 No days? Prior Living Arrangements House Household Members spouse,children Type of transporation used prior to Drives own vehicle admit Independent with ADL's Yes Is patient alert and oriented? Yes Caregiver for Another Yes: 3 children Barriers to Discharge No Transportation Arrangement Spouse Referrals Initiated None needed Whiteboard Updated in Patient Room with Yes name and ext. # of Technologist Development Review Status In Process Next Review Type Continued Stay Review
[2023-01-19 17:04] LABS: Hemoglobin 9.3 g/dL (12.0-16.0); Mean Corpuscular HGB Conc 35.9 % (30-36); Mean Corpuscular Hemoglobin 32.7 PG (26-34); Mean Corpuscular Volume 91.2 fL (80-100); Platelet Count 84 X10^3/uL (150-400); Red Blood Cell Count 2.86 X10^6/uL (4.0-5.2); Red Cell Distribution Width 14.3 % (11.6-14.8); White Blood Cell Count 25.8 X10^3/uL (4.5-11.0)
[2023-01-19 17:43] LABS: Neutrophils Absolute Manual 1806 /uL (3000-5900); Nucleated Red Blood Cells 1 #/Diff; RBC Morphology Normal Morphology; Total Cells Counted 100
[2023-01-19] MEDS: allopurinoL 100 MG TABLET 300 MG PO (20:35)
[2023-01-19] MEDS: HYDROXYUREA 500 MG CAPSULE 1000 MG PO (22:02)
[2023-01-20] VITALS: BP 112/74; PULSE 77; RESP 17; TEMP 36.6; O2SAT 98
[2023-01-20 05:20] LABS: Hematocrit 24.9 % (36-46); Hemoglobin 8.9 g/dL (12.0-16.0); Mean Corpuscular HGB Conc 35.8 % (30-36); Mean Corpuscular Hemoglobin 33.1 PG (26-34); Mean Corpuscular Volume 92.5 fL (80-100); Platelet Count 71 X10^3/uL (150-400); Red Blood Cell Count 2.69 X10^6/uL (4.0-5.2); Red Cell Distribution Width 14.1 % (11.6-14.8); White Blood Cell Count 21.2 X10^3/uL (4.5-11.0)
[2023-01-20 05:24] LABS: Uric Acid 5.2 mg/dL (2.5-6.2)
[2023-01-20 07:00] LABS: Neutrophils Absolute Manual 636 /uL (3000-5900); Platelet Estimate Decreased on smear; RBC Morphology Normal Morphology; Total Cells Counted 100
[2023-01-20] MEDS: HYDROXYUREA 500 MG CAPSULE 1000 MG PO (08:20)
[2023-01-20] MEDS: allopurinoL 100 MG TABLET 300 MG PO (08:20)
[2023-01-20 08:21] VITALS: BP 135/83; PULSE 75; RESP 17; TEMP 36.6; O2SAT 98
[2023-01-20] MEDS: ACETAMINOPHEN 325 MG TABLET 650 MG PO (08:21)
--- NOTE | 2023-01-20 10:10 | P.DS_ITS ---
History of Present Illness History of Present Illness Date Patient Seen: 01/20/23 Time Patient Seen: 10:10 Chief complaint: sent by [facility] poss anemia Narrative: Pt is a 42yo woman without significant medical history who presented with easy bruising, fatigue, and chills. The pt reports that she was diagnosed with strep throat on 01/01. She did not have a fever at that time. She completed a 10 day course of penicillin without any issues. Since then, her throat has continued to be minimally sore. She states for the past week she has been bruising very easily on her arms and legs. She is having small nose bleeds everytime she blows her nose. She had a much heavier than usual menses, that continues to be present for longer than normal and she is still passing small clots. She has noticed small amounts of blood in her urine as well. In the past couple days, she has noticed small red dots on her body as well. She has been feeling very chilled all the time for the past week. Her family has commented that she appears pale. She has been excessively fatigued. She denies any recent chest pain or SOB. She denies any cough, congestion, or ear pain. She denies any abdominal pain, diarrhea, or constipation. She denies any dysuria. She denies any known fevers. The pt denies any family history of bleeding disorders or cancer. Prior to her strep throat, she had been feeling well. She has been a little more stressed recently due to her daughter's graduation. Discharge Providers Provider Date of admission: 01/18/23 13:55 Discharge Date: 01/20/23 Primary care physician: Leilani Shine MD Discharge provider: Leilani Shine MD Summary Hospital Course Discharge Diagnosis: Acute myeloid leukemia Hospital Course: The pt presented with easy bruising, fatigue, and chills. She was found to have thrombocytopenia with platelet count of 4, lymphocytosis with WBC count of 27, and anemia with Hgb of 6.7. She received 2 units of PRBCs and platelets, with good response. Her blood counts remained stable during her hospitalization, although platelet count was drifting back down and was 71 at discharge, down from 94 after transfusion. Flow cytometry returned showing AML with 64% blasts. Oncology, Dr Del Rio, was consulted. Phosphate level was obtained which was minimally elevated at 5, and uric acid level was normal. Tumor lysis syndrome remained unlikely with labs at current values. Allopurinol was initiated, and will be continued 300mg q12hr x2. The pt will start Hydrea 1g q12hr at discharge.? FISH, cytogenetic, and molecular mutational studies for AML were ordered.? The pt will complete repeat CBC, CMP, phosphate, and uric acid on 01/22 to ensure stable. At home, she will monitor for fever > 100.4F or petechiae/easy bruising again, and if present return to the ED for evaluation.? [facility] will contact the patient on 01/23 about scheduling with them.? There are no beds currently available at the or other [facility] facilities.? There should be no compromise in outcomes with the pt not starting induction chemo imminently. The pt did wish to discharge home for now. She and her expressed understanding of the plan. She is stable for d/c home. Status at Discharge Cognitive/behavioral status at discharge: oriented Functional status at discharge: independent ambulation Time Spent with Patient Time spent: Greater than 30 minutes Exam Vital Signs (past 8 hours): - 01/20/23 08:21 Temperature 97.8 F Pulse Rate 75 Respiratory Rate 17 Blood Pressure 135/83 Pulse Oximetry 98 Oxygen Flow Rate 0 Oxygen Delivery Method Room Air Oxygen Flow Rate 0 Narrative Exam Narrative: Gen:? NAD, sitting comfortably in bed CV:? RRR, no murmurs Resp:? clear to auscultation bilaterally Abd:? soft, nontender, nondistended, normoactive bowel sounds Ext:? no edema Objective Labs 01/20/23 04:41 01/19/23 01:41 Labs: Laboratory Results - last 24 hr 01/18/23 01/19/23 01/20/23 10:05 16:15 04:41 WBC 25.8 H 21.2 H RBC 2.86 L 2.69 L Hgb 9.3 L 8.9 L Hct 26.0 L 24.9 L MCV 91.2 92.5 MCH 32.7 33.1 MCHC 35.9 35.8 RDW 14.3 14.1 Plt Count 84 L 71 L Total Counted 100 100 Seg Neutrophils % 3.0 L 1.0 L D Band Neutrophils % 4.0 2.0 L Lymphocytes % (Manual) 22.0 L 27.0 Atypical Lymphs % 3.0 H Monocytes % (Manual) 5.0 8.0 Metamyelocytes % 2.0 H 3.0 H Myelocytes % 10.0 H Promyelocytes % 11.0 H Blast Cells % 61.0 H 38.0 H Neutrophils # (Manual) 1806 L 636 L Nucleated RBCs 1 H Platelet Estimate Decreased on smear RBC Morphology Normal morphology Normal morphology Uric Acid Phosphorus Leuk/Lym Sample Descrip Comment Leuk/Lym Comment Comment L/L Sign Pathologist Comment CLL Flow Interpret Comment Leuk/Lymph Case # TNP Leuk/Lymph Ind for Study Comment Leuk/Lymph Flow Com Comment CLL (FISH) Add Info TNP 01/20/23 04:41 WBC RBC Hgb Hct MCV MCH MCHC RDW Plt Count Total Counted Seg Neutrophils % Band Neutrophils % Lymphocytes % (Manual) Atypical Lymphs % Monocytes % (Manual) Metamyelocytes % Myelocytes % Promyelocytes % Blast Cells % Neutrophils # (Manual) Nucleated RBCs Platelet Estimate RBC Morphology Uric Acid 5.2 Phosphorus 5.0 H Leuk/Lym Sample Descrip Leuk/Lym Comment L/L Sign Pathologist CLL Flow Interpret Leuk/Lymph Case # Leuk/Lymph Ind for Study Leuk/Lymph Flow Com CLL (FISH) Add Info [facility] Medical History (Updated 01/20/23 @ 13:21 by Leilani Shine MD) AMA (advanced maternal age) multigravida 35+ AML (acute myeloblastic leukemia) Anxiety (~2016) Depression (~2016) Gestational diabetes Left wrist fracture Migraine hemorrhage Pre-eclampsia Preeclampsia (~01/09/05) Seasonal allergies (spontaneous vaginal delivery) (~10/29/98) Vacuum-assisted vaginal delivery Surgical History H/O dilation and curettage (~2001) Family History Mother Hypertension Father Hypertension Cataracts, bilateral Grandfather Old age Grandmother Old age Grandfather No problems noted. 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 You should expect a call from the [facility] on 01/23 to schedule an appointment. Our clinic will also contact you to ensure this is scheduled. If you have a fever > 100.4F at home, or notice any more bruising or small red spots on your skin, please come back to the ER for evaluation. Discharge orders & Medications Prescriptions: Continued norgestimate-ethinyl estradiol 0.25-35 mg-mcg tablet 1 tab PO DAILY Qty: 28 11RF loratadine [Claritin] 10 mg tablet 10 mg PO DAILY acetaminophen 325 mg Tablet 650 mg PO Q6HR PRN (Reason: Pain, Mild (1-3)) Qty: 30 0RF ibuprofen 600 mg Tablet 600 mg PO Q6HR PRN (Reason: Pain, Mild (1-3)) Qty: 30 0RF No Action hydroxyurea 500 mg capsule 1,000 mg PO BID Qty: 120 0RF allopurinol 100 mg tablet 300 mg PO BEDTIME Qty: 90 0RF Follow up/Referrals: Leilani Shine MD [Primary Care Provider] - 2 Weeks Diet/Activity/Treatments Diet: Diet as Tolerated and Regular Skin/Wound/Dressing Care Report to your healthcare provider any signs of infection, such as:: chills, fever Visit Report/Discharge Packet Instructions: Leukemia -- Adult, DI for Acute Myelogenous Leukemia-Adult Stand Alone Forms: Patient Portal/API, Stroke Signs & Symptoms Discharge Data Primary Care Provider: Leilani Shine Discharges patient from system. Discharge Date/Time: 01/20/23 11:19 Quality VTE Deep Vein Thrombosis/Pulmonary Embolism Present on Admission: No
--- NOTE | 2023-01-20 11:43 | CM.DPC ---
DCP Continued: Patient is a 42yoF here for bruising, weakness, and fever. AIRCRAFT SYSTEMS TECHNICIAN reviewed EMR. From rounds, patient is likely to d/c today and is improving. AIRCRAFT SYSTEMS TECHNICIAN was unable to meet with patient prior to patient d/c. Patient appears to have d/c home with no needs from CM team. From previous d/c assessment, patient is independent with ADLs and has supportive family at home. Plan: d/c home with family. follow up with outpatient care. MARC Guido
[2023-01-27 00:09] LABS: Interpretation Negative (.)
== END 2023-01-20 11:19 | disposition home or self-care (01) | DRG 836 ==
LOC: ED 13:54 → AC 14:07
PROVIDERS: Admitting Provider Family Medicine; Emergency Provider Emergency Medicine; PCP Family Medicine; Referring Provider Emergency Medicine; Visit Provider Family Medicine
DX: C92.00 Acute myeloblastic leukemia, not having achieved remission (principal); D69.6 Thrombocytopenia, unspecified; Z20.822 Contact with and (suspected) exposure to COVID-19; Z87.891 Personal history of nicotine dependence
CPT/HCPCS: 36415; 36430; 70450; 80053; 81206; 81207; 83615; 84100; 84550; 85007; 85025; 85384; 85610; 85730; 86078; 86850; 86900; 86901; 86945; 87635; 87651; 88184; 99222; 99233; 99238; 99284; C9803; P9035

== ENCOUNTER → 2023-01-22 09:28 | Outpatient (CLI) | payer OTHER, SELFPAY ==
[2023-01-18 14:44] VITALS: BMI 26.3
[2023-01-22 12:28] LABS: Hematocrit 26.1 % (36-46); Hemoglobin 9.3 g/dL (12.0-16.0); Mean Corpuscular HGB Conc 35.5 % (30-36); Mean Corpuscular Volume 92.8 fL (80-100); Platelet Count 40 X10^3/uL (150-400); Red Blood Cell Count 2.81 X10^6/uL (4.0-5.2); Red Cell Distribution Width 14.1 % (11.6-14.8); White Blood Cell Count 16.7 X10^3/uL (4.5-11.0)
[2023-01-22 12:49] LABS: Alanine Aminotransferase 26 IU/L (<35); Albumin 3.8 g/dL (3.5-5.0); Albumin Globulin Ratio 1.1 (1.0-2.8); Alkaline Phosphatase 56 U/L (38-126); Aspartate Aminotransferase 22 IU/L (14-36); BUN Creatinine Ratio 17.9 (6-22); Bilirubin Total 0.3 mg/dL (0.2-1.3); Blood Urea Nitrogen 12 mg/dL (7-17); Calcium 8.7 mg/dL (8.4-10.2); Carbon Dioxide 27 mmol/L (22-32); Chloride 102 mmol/L (98-107); Estimated Glomerular Filt Rate > 60 mL/min (>60); Globulin 3.5 g/dL (1.7-4.1); Glucose 99 mg/dL (70-100); HEMOLYSIS < 15 (0-50); Phosphorous 4.3 mg/dL (2.5-4.5); Potassium 4.3 mmol/L (3.4-5.1); Sodium 135 mmol/L (137-145); Total Protein 7.3 g/dL (6.3-8.2); Uric Acid 4.2 mg/dL (2.5-6.2)
[2023-01-22 13:29] LABS: Neutrophils Absolute Manual 501 /uL (3000-5900); Nucleated Red Blood Cells 1 #/Diff; Total Cells Counted 100
[2023-01-22 13:30] LABS: RBC Morphology Normal Morphology
== END ==
PROVIDERS: PCP Family Medicine; Referring Provider Family Medicine; Visit Provider Family Medicine
DX: C92.00 Acute myeloblastic leukemia, not having achieved remission (principal)
CPT/HCPCS: 36415; 80053; 84100; 84550; 85025

== ENCOUNTER → 2023-01-25 14:39 | Outpatient (CLI) | payer OTHER, SELFPAY ==
[2023-01-18 14:44] VITALS: BMI 26.3
[2023-01-25 14:52] LABS: Hematocrit 23.9 % (36-46); Hemoglobin 8.8 g/dL (12.0-16.0); Mean Corpuscular HGB Conc 36.7 % (30-36); Mean Corpuscular Hemoglobin 33.6 PG (26-34); Mean Corpuscular Volume 91.5 fL (80-100); Red Blood Cell Count 2.62 X10^6/uL (4.0-5.2); Red Cell Distribution Width 13.5 % (11.6-14.8); White Blood Cell Count 12.7 X10^3/uL (4.5-11.0)
[2023-01-25 15:11] LABS: Nucleated Red Blood Cells 1 #/Diff; Total Cells Counted 100
[2023-01-25 15:12] LABS: Platelet Estimate Decreased on smear; RBC Morphology Normal Morphology
[2023-01-25 15:22] LABS: Neutrophils Absolute Manual 0 /uL (3000-5900)
[2023-01-25 15:23] LABS: Platelet Count 8 X10^3/uL (150-400)
== END ==
PROVIDERS: PCP Family Medicine; Referring Provider Family Medicine; Visit Provider Family Medicine
DX: C92.00 Acute myeloblastic leukemia, not having achieved remission (principal)
CPT/HCPCS: 36415; 85025

== ENCOUNTER 2023-03-24 09:48 | Emergency (ER) | payer OTHER, SELFPAY ==
[2023-01-18 14:44] VITALS: BMI 26.3
[2023-03-24] VITALS (30 sets, daily range): BP systolic 105–142; BP diastolic 59–80; PULSE 82–104; RESP 13–35; TEMP 37.4–38.1; O2SAT 97–100; BMI 25.7
[2023-03-24 10:43] LABS: Hemoglobin 9.4 g/dL (12.0-16.0); Mean Corpuscular Hemoglobin 29.6 PG (26-34); Mean Corpuscular Volume 82.2 fL (80-100); Red Blood Cell Count 3.16 X10^6/uL (4.0-5.2); Red Cell Distribution Width 19.3 % (11.6-14.8)
[2023-03-24 10:52] LABS: Add Manual Diff / Slide Review NO; Platelet Count 34 X10^3/uL (150-400); White Blood Cell Count 0.1 X10^3/uL (4.5-11.0)
--- NOTE | 2023-03-24 10:59 | ED_ITS ---
HPI - Fever General Chief Complaint: Fever Stated Complaint: fever 103.7/ current ONC patient Time Seen by Provider: 03/24/23 10:13 Source: patient and family Mode of arrival: Ambulatory History of Present Illness HPI Narrative: Patient is a 42-year-old female history of a ALL currently being followed by [facility] chemotherapy 2 weeks she is had platelet transfusions blood transfusions in presents today with fever. She would a temperature this morning 103. She woke up this morning with a headache no neck pain no cough no shortness of breath no abdominal pain no painful frequent urination. Never had neutropenic fever. Overall is feeling a bit better Related Data Home Medications Medication Instructions Recorded Confirmed loratadine 10 mg tablet (Claritin) 10 mg PO DAILY 04/08/20 01/18/23 Previous Rx's Medication Instructions Recorded acetaminophen 325 mg tablet 650 mg PO Q6HR PRN Pain, Mild 11/05/20 (1-3) #30 tabs ibuprofen 600 mg tablet 600 mg PO Q6HR PRN Pain, Mild 11/05/20 (1-3) #30 tabs norgestimate 0.25 mg-ethinyl 1 tab PO DAILY #28 tabs 08/08/22 estradiol 35 mcg tablet allopurinol 100 mg tablet 300 mg PO BEDTIME #90 tabs 01/20/23 hydroxyurea 500 mg capsule 1,000 mg PO BID #120 caps 01/20/23 levofloxacin 750 mg tablet 750 mg PO Q24H #30 tabs 01/22/23 Allergies Allergy/AdvReac Type Severity Reaction Status Date / Time No Known Drug Allergies Allergy Verified 01/18/23 09:07 Review of Systems Review of Systems ROS Unobtainable: All systems reviewed & are unremarkable except as noted in HPI and below Patient History Medical History (Updated 03/24/23 @ 16:17 by Radha Dillard DO) AMA (advanced maternal age) multigravida 35+ AML (acute myeloblastic leukemia) Anxiety (~2016) Depression (~2016) Gestational diabetes Left wrist fracture Migraine hemorrhage Pre-eclampsia Preeclampsia (~01/09/05) Seasonal allergies (spontaneous vaginal delivery) (~10/29/98) Vacuum-assisted vaginal delivery Surgical History H/O dilation and curettage (~2001) Family History Mother Hypertension Father Hypertension Cataracts, bilateral Grandfather Old age Grandmother Old age Grandfather No problems noted. Grandmother Old age Brother No known health problems Social History marital status: unmarried,living together details: Son is in College : [place] number of children: 2 household members: spouse and children lives independently: Yes pets and animals: Yes education level: high school occupational status: employed current occupational exposures/hazards: Yes Previous occupational history: works at the [email or web address] needs: No Smoking Status: Former smoker Tobacco: How many years used: 20 Smokeless tobacco user: dissolvable tobacco (Vaping - aware and using less) second hand exposure: No alcohol intake: former substance use type: does not use Smoking Status: Former smoker alcohol intake frequency: a few times a month Alcohol type: wine Substance Use Type: does not use Exam Initial Vital Signs Initial Vital Signs: Vital Signs Pulse Rate 101 H 03/24/23 09:58 Pulse Oximetry 99 03/24/23 09:58 GENERAL: Alert pleasant well-appearing 42-year-old female and in no acute distress. HEENT: Head atraumatic,EOMI, pupils reactive, face symmetric, moist mucous mem branes , neck is supple no meningeal signs CARDIOVASCULAR: Regular rate and rhythm without murmurs, rubs or gallops. RESPIRATORY: Breath sounds equal bilaterally, no wheezes rales or rhonchi. ABDOMEN: Soft, nontender. Normoactive bowel sounds all 4 quadrants. No guarding or rebound. EXTREMITIES: Normal range of motion, no clubbing or edema. Neurovascularly intact NEUROLOGICAL: Alert and oriented x4. SKIN: Warm, dry, no laceration, no petechiae, no rashes or lesions. Course Orders Ordered: ED Orders 03/24/23 10:25 Complete Blood Count AUTO DIFF Stat Comprehensive Metabolic Panel Stat Lactate (Lactic Acid) Stat Procalcitonin Stat Troponin & CK Cardiac Panel Stat 03/24/23 10:35 Blood Culture Stat 03/24/23 10:36 EKG-12 Lead Stat 03/24/23 10:55 Urinalysis and Microscopic Stat 03/24/23 11:47 Respiratory Panel (Film Array) Stat 03/24/23 13:48 Chest [XR chest 1V] Stat Discontinued Medications Acetaminophen (Acetaminophen 325 Mg Tablet) 975 mg PO NOW ONE Stop: 03/24/23 11:49 Last Admin: 03/24/23 11:54 Dose: 975 mg Documented By: BALBIR Piperacillin Sod/Tazobactam (Sod 4.5 gm/ Sodium Chloride) 100 mls @ 200 mls/hr IV NOW ONE Stop: 03/24/23 11:43 Last Infusion: 03/24/23 12:32 Dose: 0 mls/hr Documented By: Admin: 03/24/23 11:53 Dose: 200 mls/hr Documented By: RB Cefepime HCl 2 gm/ Sodium (Chloride) 100 mls @ 200 mls/hr IV NOW ONE Stop: 03/24/23 14:26 Last Infusion: 03/24/23 15:15 Dose: 0 mls/hr Documented By: Admin: 03/24/23 14:34 Dose: 200 mls/hr Documented By: BALBIR Vancomycin HCl (Vancomycin) 1,000 mg in 200 mls @ 200 mls/hr IV NOW ONE Stop: 03/24/23 15:24 Last Infusion: 03/24/23 16:23 Dose: 0 mls/hr Documented By: Admin: 03/24/23 15:15 Dose: 200 mls/hr Documented By: GONZÁLEZ Vital Signs Vital signs: Vital Signs - 8 hr 03/24/23 11:15 03/24/23 11:15 03/24/23 11:30 Temperature Pulse Rate 91 H Respiratory Rate 35 H Blood Pressure 128/71 124/73 Pulse Oximetry 100 03/24/23 11:30 03/24/23 11:45 03/24/23 11:45 Temperature Pulse Rate 87 92 H Respiratory Rate 29 H 26 H Blood Pressure 127/71 Pulse Oximetry 100 100 03/24/23 12:00 03/24/23 12:00 03/24/23 12:32 Temperature 99.4 F Pulse Rate 92 H Respiratory Rate 24 Blood Pressure 122/72 Pulse Oximetry 100 03/24/23 12:15 03/24/23 12:15 03/24/23 12:30 Temperature Pulse Rate 85 Respiratory Rate 22 Blood Pressure 122/71 120/68 Pulse Oximetry 100 03/24/23 12:30 03/24/23 12:45 03/24/23 12:45 Temperature Pulse Rate 94 H 100 H Respiratory Rate 27 H 26 H Blood Pressure 112/62 Pulse Oximetry 100 99 03/24/23 13:00 03/24/23 13:00 03/24/23 13:15 Temperature Pulse Rate 98 H Respiratory Rate 24 Blood Pressure 106/60 105/64 Pulse Oximetry 98 03/24/23 13:15 03/24/23 13:30 03/24/23 13:30 Temperature Pulse Rate 97 H 95 H Respiratory Rate 23 23 Blood Pressure 105/61 Pulse Oximetry 98 98 03/24/23 13:45 03/24/23 13:45 03/24/23 14:00 Temperature Pulse Rate 93 H 99 H Respiratory Rate 21 22 Blood Pressure 105/59 L Pulse Oximetry 99 98 03/24/23 14:00 03/24/23 14:15 03/24/23 14:15 Temperature Pulse Rate 86 Respiratory Rate 20 Blood Pressure 114/65 110/61 Pulse Oximetry 99 03/24/23 14:30 03/24/23 14:45 03/24/23 14:45 Temperature Pulse Rate 94 H 82 Respiratory Rate 22 Blood Pressure 114/70 Pulse Oximetry 99 99 03/24/23 15:00 03/24/23 15:00 03/24/23 15:15 Temperature Pulse Rate 82 88 Respiratory Rate 21 17 Blood Pressure 118/66 Pulse Oximetry 100 100 03/24/23 15:15 03/24/23 15:31 03/24/23 15:32 Temperature Pulse Rate 95 H 93 H Respiratory Rate 13 20 Blood Pressure 115/65 Pulse Oximetry 97 100 03/24/23 15:32 03/24/23 15:45 03/24/23 15:45 Temperature Pulse Rate 94 H Respiratory Rate 20 Blood Pressure 129/70 140/76 Pulse Oximetry 100 03/24/23 16:00 03/24/23 16:00 03/24/23 16:15 Temperature Pulse Rate 93 H 91 H Respiratory Rate 21 21 Blood Pressure 140/80 Pulse Oximetry 100 100 03/24/23 16:15 Temperature Pulse Rate Respiratory Rate Blood Pressure 142/78 H Pulse Oximetry MDM - Fever Lab Data 03/24/23 10:25 03/24/23 10:25 Labs: Lab Results 03/24/23 03/24/23 03/24/23 Range/Units 10:25 10:25 10:25 WBC 0.1 L* (4.5-11.0) X10^3/uL RBC 3.16 L (4.0-5.2) X10^6/uL Hgb 9.4 L (12.0-16.0) g/dL Hct 26.0 L (36-46) % MCV 82.2 (80-100) fL MCH 29.6 (26-34) PG MCHC 36.0 (30-36) % RDW 19.3 H (11.6-14.8) % Plt Count 34 L* (150-400) X10^3/uL Neut % (Auto) Not Reportable Lymph % (Auto) Not Reportable [place] % (Auto) Not Reportable Eos % (Auto) Not Reportable Baso % (Auto) Not Reportable Lymph # (Auto) Not Reportable [place] # (Auto) Not Reportable Baso # (Auto) Not Reportable Platelet Estimate Decreased on smear RBC Morphology Normal morphology Sodium 132 L (137-145) mmol/L Potassium 3.8 (3.4-5.1) mmol/L Chloride 103 (98-107) mmol/L Carbon Dioxide 20 L (22-32) mmol/L BUN 9 (7-17) mg/dL Creatinine 0.74 (0.52-1.04) mg/dL Estimated GFR > 60 (>60) mL/min BUN/Creatinine Ratio 12.2 (6-22) Glucose 121 H (70-100) mg/dL Lactate 1.2 (0.7-2.1) mmol/L Calcium 8.7 (8.4-10.2) mg/dL Total Bilirubin 1.9 H (0.2-1.3) mg/dL AST 22 (14-36) IU/L ALT 25 (<35) IU/L Alkaline Phosphatase 64 (38-126) U/L Total Creatine Kinase 49 (30-135) U/L Troponin I < 0.012 (0.01-0.034) ng/mL Total Protein 7.3 (6.3-8.2) g/dL Albumin 4.0 (3.5-5.0) g/dL Globulin 3.3 (1.7-4.1) g/dL Albumin/Globulin Ratio 1.2 (1.0-2.8) Procalcitonin 0.36 (<0.5) ng/mL Urine Color Urine Appearance Urine pH (4.5-8.0) Ur Specific [place] (1.000-1.035) Urine Protein (Negative) Urine Glucose (UA) (Negative) g/dL Urine Ketones (NEGATIVE) Urine Occult Blood (Negative) Urine Nitrate (Negative) Urine Bilirubin (NEGATIVE) Urine Urobilinogen (0.2) E.U./dL Ur Leukocyte Esterase (NEGATIVE) Urine RBC (0-5/HPF) Urine WBC (0-5/HPF) Ur Squamous Epith Cells (0-5/HPF) Urine Bacteria (None) Ur Culture Indicated? Chlamy pneumoniae PCR (Not Detect) Adenovirus (PCR) (Not Detect) B. pertussis DNA (PCR) (Not Detecte) B.parapertussis DNA PCR (Not Detecte) Coronavirus OC43 (PCR) (Not Detect) Coronavirus HKU1 (PCR) (Not Detect) Coronavirus 229E (PCR) (Not Detect) SARS-CoV-2 (PCR) (Not Detecte) Coronavirus NL63 (PCR) (Not Detect) Human Metapneumovir PCR (Not Detect) Influenza Type A (PCR) (Not Detect) Influenza Type B (PCR) (Not Detect) M. pneumoniae (PCR) (Not Detect) Parainfluenza 1 (PCR) (Not Detect) Parainfluenza 2 (PCR) (Not Detect) Parainfluenza 3 (PCR) (Not Detect) Parainfluenza 4 (PCR) (Not Detect) RSV (PCR) (Not Detect) Entero/Rhino (PCR) (Not Detect) 03/24/23 03/24/23 Range/Units 10:55 11:47 WBC (4.5-11.0) X10^3/uL RBC (4.0-5.2) X10^6/uL Hgb (12.0-16.0) g/dL Hct (36-46) % MCV (80-100) fL MCH (26-34) PG MCHC (30-36) % RDW (11.6-14.8) % Plt Count (150-400) X10^3/uL Neut % (Auto) Lymph % (Auto) [place] % (Auto) Eos % (Auto) Baso % (Auto) Lymph # (Auto) [place] # (Auto) Baso # (Auto) Platelet Estimate RBC Morphology Sodium (137-145) mmol/L Potassium (3.4-5.1) mmol/L Chloride (98-107) mmol/L Carbon Dioxide (22-32) mmol/L BUN (7-17) mg/dL Creatinine (0.52-1.04) mg/dL Estimated GFR (>60) mL/min BUN/Creatinine Ratio (6-22) Glucose (70-100) mg/dL Lactate (0.7-2.1) mmol/L Calcium (8.4-10.2) mg/dL Total Bilirubin (0.2-1.3) mg/dL AST (14-36) IU/L ALT (<35) IU/L Alkaline Phosphatase (38-126) U/L Total Creatine Kinase (30-135) U/L Troponin I (0.01-0.034) ng/mL Total Protein (6.3-8.2) g/dL Albumin (3.5-5.0) g/dL Globulin (1.7-4.1) g/dL Albumin/Globulin Ratio (1.0-2.8) Procalcitonin (<0.5) ng/mL Urine Color Red Urine Appearance Cloudy Urine pH 8.5 H (4.5-8.0) Ur Specific [place] 1.015 (1.000-1.035) Urine Protein 1+ H (Negative) Urine Glucose (UA) Negative (Negative) g/dL Urine Ketones Negative (NEGATIVE) Urine Occult Blood 3+ H (Negative) Urine Nitrate Negative (Negative) Urine Bilirubin Negative (NEGATIVE) Urine Urobilinogen >=8.0 (0.2) E.U./dL Ur Leukocyte Esterase Negative (NEGATIVE) Urine RBC >100/hpf H (0-5/HPF) Urine WBC 0-1/hpf (0-5/HPF) Ur Squamous Epith Cells None seen (0-5/HPF) Urine Bacteria None seen (None) Ur Culture Indicated? Cult not indicated Chlamy pneumoniae PCR Not detected (Not Detect) Adenovirus (PCR) Not detected (Not Detect) B. pertussis DNA (PCR) Not detected (Not Detecte) B.parapertussis DNA PCR Not detected (Not Detecte) Coronavirus OC43 (PCR) Not detected (Not Detect) Coronavirus HKU1 (PCR) Not detected (Not Detect) Coronavirus 229E (PCR) Not detected (Not Detect) SARS-CoV-2 (PCR) Not detected (Not Detecte) Coronavirus NL63 (PCR) Not detected (Not Detect) Human Metapneumovir PCR Not detected (Not Detect) Influenza Type A (PCR) Not detected (Not Detect) Influenza Type B (PCR) Not detected (Not Detect) M. pneumoniae (PCR) Not detected (Not Detect) Parainfluenza 1 (PCR) Not detected (Not Detect) Parainfluenza 2 (PCR) Not detected (Not Detect) Parainfluenza 3 (PCR) Not detected (Not Detect) Parainfluenza 4 (PCR) Not detected (Not Detect) RSV (PCR) Not detected (Not Detect) Entero/Rhino (PCR) Not detected (Not Detect) Imaging Data Chest x-ray: Radiologist's Impression: PROCEDURE:? XR CHEST 1V ? INDICATIONS:? fever ? TECHNIQUE:? One view of the chest was acquired.? ? COMPARISON:? None. ? FINDINGS:? ? Surgical changes and devices:? None.? ? Lungs and pleura:? Lungs are clear.? No pleural effusions or pneumothorax.? ? Mediastinum:? Mediastinal contours appear normal.? Heart size is normal.? ? Bones and chest wall:? No suspicious bony lesions.? Overlying soft tissues appear unremarkable.? ? IMPRESSION:? No acute cardiopulmonary findings ? ? ? Approved by: Jama Haney M.D. on 03/24/2023 at 14:38? ECG Data Interpretation: Normal sinus rhythm rate 92 PA interval 132 QRS [address] changes no T- wave inversions no priors to compare MDM Narrative Medical decision making narrative: Patient 42-year-old female currently undergoing chemotherapy followed closely by [facility] in [place] presents today with neutropenic fever. No source is identified. She overall looks well no evidence sepsis normal lactate and blood pressure. She initially was given Zosyn. However I did talk with , her oncologist who recommends cefepime and vancomycin. Reports that it is okay to discharge her home if she wants versus admission to the hospital versus transfer. The patient has an appointment tomorrow for blood transfusion in [place]. He says that a hospitalist or someone will call her tomorrow if she chooses to go home. Patient is opting to go home she overall appears well. She is given cefepime and vancomycin per Oncology. She is on outpatient Levaquin and has been for awhile. She is close outpatient follow-up tomorrow. Patient denies vaginal bleeding, earlier when talking to the oncologist as if patient was still having some vaginal bleeding which can happen with thrombocytopenia and chemo she is not. Discharge Plan Departure Patient Disposition: Home Clinical Impression: Neutropenic fever Instructions: Neutropenic Fever Activity Restrictions/Additional Instructions: *You have been diagnosed with neutropenic fever *What to do: Please follow-up with oncology as scheduled tomorrow. Keep taking Levaquin. You have cultures that are pending. *Continue to take medications as directed Tylenol 1000 mg every 6 hours if needed for fever *Follow up with your primary care provider in 2-3 days or call [phone] *Return to ER if you should have increasing chest pain shortness of breath nausea vomiting or any new, worsening or concerning symptoms Prescriptions: No Action norgestimate-ethinyl estradiol 0.25-35 mg-mcg tablet 1 tab PO DAILY Qty: 28 11RF hydroxyurea 500 mg capsule 1,000 mg PO BID Qty: 120 0RF allopurinol 100 mg tablet 300 mg PO BEDTIME Qty: 90 0RF levofloxacin 750 mg tablet 750 mg PO Q24H Qty: 30 2RF loratadine [Claritin] 10 mg tablet 10 mg PO DAILY acetaminophen 325 mg Tablet 650 mg PO Q6HR PRN (Reason: Pain, Mild (1-3)) Qty: 30 0RF ibuprofen 600 mg Tablet 600 mg PO Q6HR PRN (Reason: Pain, Mild (1-3)) Qty: 30 0RF Referrals: Deric Parra MD [Non-Staff] - Leilani Shine MD [Primary Care Provider] - Stand Alone Forms: Patient Portal/API
[2023-03-24 11:03] LABS: Alanine Aminotransferase 25 IU/L (<35); Albumin Globulin Ratio 1.2 (1.0-2.8); Alkaline Phosphatase 64 U/L (38-126); Aspartate Aminotransferase 22 IU/L (14-36); BUN Creatinine Ratio 12.2 (6-22); Bilirubin Total 1.9 mg/dL (0.2-1.3); Blood Urea Nitrogen 9 mg/dL (7-17); Calcium 8.7 mg/dL (8.4-10.2); Carbon Dioxide 20 mmol/L (22-32); Chloride 103 mmol/L (98-107); Creatine Kinase 49 U/L (30-135); Estimated Glomerular Filt Rate > 60 mL/min (>60); Globulin 3.3 g/dL (1.7-4.1); Glucose 121 mg/dL (70-100); HEMOLYSIS < 15 (0-50); Potassium 3.8 mmol/L (3.4-5.1); Sodium 132 mmol/L (137-145); Total Protein 7.3 g/dL (6.3-8.2)
[2023-03-24 11:04] LABS: Lactate (Lactic Acid) 1.2 mmol/L (0.7-2.1)
[2023-03-24 11:09] LABS: Appearance Urine UA CLOUDY; Bilirubin Urine UA NEGATIVE (NEGATIVE); Color Urine UA RED; Glucose Urine UA NEGATIVE (Negative); Ketones Urine UA NEGATIVE (NEGATIVE); Leukocyte Esterase Urine UA NEGATIVE (NEGATIVE); Nitrite Urine UA NEGATIVE (Negative); Occult Blood Urine UA 3+ (Negative); Protein Urine UA 1+ (Negative); Specific Gravity Urine UA 1.015 (1.000-1.035); Urobilinogen Urine UA >=8.0 E.U./dL (0.2)
[2023-03-24 11:15] LABS: pH Urine UA 8.5 (4.5-8.0)
[2023-03-24 11:15] LABS: Troponin I < 0.012 ng/mL (0.01-0.034)
[2023-03-24 11:20] LABS: Procalcitonin 0.36 ng/mL (<0.5)
[2023-03-24 11:27] LABS: Bacteria Urine None Seen; Culture Indicated Urine Cult Not Indicated; RBC Urine >100/HPF (0-5/HPF); Squamous Epithelial Cell Urine None Seen (0-5/HPF); WBC Urine 0-1/HPF (0-5/HPF)
[2023-03-24 11:42] LABS: Platelet Estimate Decreased on smear; RBC Morphology Normal Morphology
[2023-03-24] MEDS: PIPERACILLIN/TAZO 4.5 GM in SODIUM CHLORIDE 0.9% 100 ML IV (11:53)
[2023-03-24] MEDS: ACETAMINOPHEN 325 MG TABLET 975 MG PO (11:54)
[2023-03-24 12:58] LABS: Adenovirus Not Detected (Not Detect); B. parapertussis Not Detected (Not Detecte); Bordetella pertussis Not Detected (Not Detecte); Chlamydophila pneumoniae Not Detected (Not Detect); Coronavirus 229E Not Detected (Not Detect); Coronavirus HKU1 Not Detected (Not Detect); Coronavirus NL 63 Not Detected (Not Detect); Coronavirus OC43 Not Detected (Not Detect); Human Metapneumovirus Not Detected (Not Detect); Human Rhinovirus/Enterovirus Not Detected (Not Detect); Influenza A Not Detected (Not Detect); Influenza B Not Detected (Not Detect); Mycoplasma pneumoniae Not Detected (Not Detect); Parainfluenza Virus 1 Not Detected (Not Detect); Parainfluenza Virus 2 Not Detected (Not Detect); Parainfluenza Virus 3 Not Detected (Not Detect); Parainfluenza Virus 4 Not Detected (Not Detect); Respiratory Syncytial Virus Not Detected (Not Detect); SARS- CoV-2 Not Detected (Not Detecte)
--- NOTE | 2023-03-24 13:48 | DI.RAD.S_ITS ---
PROCEDURE: XR CHEST 1V INDICATIONS: fever TECHNIQUE: One view of the chest was acquired. COMPARISON: None. FINDINGS: Surgical changes and devices: None. Lungs and pleura: Lungs are clear. No pleural effusions or pneumothorax. Mediastinum: Mediastinal contours appear normal. Heart size is normal. Bones and chest wall: No suspicious bony lesions. Overlying soft tissues appear unremarkable. IMPRESSION: No acute cardiopulmonary findings Approved by: Jama Haney M.D. on 03/24/2023 at 14:38
[2023-03-24] MEDS: CEFEPIME 2 GM in SODIUM CHLORIDE 0.9% 100 ML IV (14:34)
[2023-03-24] MEDS: VANCOMYCIN 1,000 MG/200 ML PIGGYBACK 200 MG IV (15:15)
[2023-03-25 09:33] LABS: Acinetobacter calcoa-baumannii Not Detected (Not Detect); Bacteroides fragilis Not Detected (Not Detect); Candida albicans Not Detected (Not Detect); Candida auris Not Detected (Not Detect); Candida glabrata Not Detected (Not Detect); Candida krusei Not Detected (Not Detect); Candida parapsilosis Not Detected (Not Detect); Candida tropicalis Not Detected (Not Detect); Enterobacter cloacae complex Not Detected (Not Detect); Enterobacterales Not Detected (Not Detect); Enterococcus faecalis Not Detected (Not Detect); Enterococcus faecium Not Detected (Not Detect); Haemophilus influenzae Not Detected (Not Detect); Klebsiella aerogenes Not Detected (Not Detect); Listeria monocytogenes Not Detected (Not Detect); Neisseria meningitidis Not Detected (Not Detect); Proteus species Not Detected (Not Detect); Pseudomonas aeruginosa Not Detected (Not Detect); Salmonella species Not Detected (Not Detect); Serratia marcescens Not Detected (Not Detect); Staphylococcus epidermidis Not Detected (Not Detect); Staphylococcus lugdunensis Not Detected (Not Detect); Staphylococcus species Not Detected (Not Detect); Stenotrophomonas maltophilia Not Detected (Not Detect); Streptococcus agalactiae (Gr B Not Detected (Not Detect); Streptococcus pneumonia Not Detected (Not Detect); Streptococcus pyogenes (Gr A) Not Detected (Not Detect); Streptococcus species DETECTED (Not Detect)
[2023-03-25 09:34] LABS: Cryptococcus neoformans/gatti Not Detected (Not Detect)
== END 2023-03-24 16:32 | disposition home or self-care (01) ==
PROVIDERS: Emergency Provider Emergency Medicine; PCP Family Medicine
DX: D70.9 Neutropenia, unspecified (principal); R07.9 Chest pain, unspecified; C92.00 Acute myeloblastic leukemia, not having achieved remission; Z20.822 Contact with and (suspected) exposure to COVID-19
CPT/HCPCS: 71045; 80053; 81001; 82550; 83605; 84145; 84484; 85025; 87040; 87154; 87186; 87633; 93005; 96365; 96367; 99284; J0692; J2543